=== PATIENT | female | born 1935 | race Caucasian/White ===

== ENCOUNTER 2016-10-16 06:00 | Day surgery (SDC) | payer MEDICARE, MEDICAID ==
[~2016-10-16] VITALS: Ht 162.6 cm; Wt 81.6 kg
[2016-10-16 06:58] LABS: BASOPHILS 0.7 % (0.0-2.0); EOSINOPHILS 2.8 % (0-7); HEMATOCRIT 34.6 % (36.0-48.0); HEMOGLOBIN 11.6 g/dL (12-16); IMMATURE GRANULOCYTES 0.2 % (0-5); LYMPHOCYTES 43.6 % (15-50); MCH 29.8 pg (26.0-34.0); MCHC 33.5 g/dL (31.0-37.0); MCV 88.9 fL (80.0-100.0); MEAN PLATELET VOLUME 9.9 fL (7.4-10.4); MONOCYTES 11.3 % (2-11); NEUTROPHILS 41.4 % (40-80); PLATELET COUNT 243 10x3/uL (130-400); RBC 3.89 10x6/uL (4.00-5.40); RDW 12.3 % (11.5-14.5); WBC 4.2 10x3/uL (4.8-10.8)
[2016-10-16 07:04] LABS: APTT 31.7 SECONDS (22.8-39.4); INR 0.98 (0.85-1.17); PROTIME 12.8 SECONDS (11.6-15.0)
[2016-10-16 07:06] LABS: ANION GAP 10.3 mmol/L (8-16); CALCIUM 8.6 mg/dL (8.5-10.1); CREATININE - SERUM 0.8 mg/dL (0.6-1.3); POTASSIUM - SERUM 4.3 mmol/L (3.5-5.1)
[2016-10-16] MEDS ORDERED: FUROSEMIDE20 MG PO (07:11)
[2016-10-16] MEDS ORDERED: KLOR-CON 1010 MEQ PO (07:12)
[2016-10-16] MEDS ORDERED: LOSARTAN POTASS25 MG PO (07:13)
[2016-10-16] MEDS ORDERED: COREG 3.1253.125 MG PO (07:14)
[2016-10-16] MEDS ORDERED: REQUIP1 MG PO (07:15)
[2016-10-16] MEDS ORDERED: WELLBUTRIN SR150 MG PO (07:15)
[2016-10-16] MEDS ORDERED: HYDROCODONE-APA1 TAB PO (07:16)
[2016-10-16] MEDS ORDERED: LEXAPRO10 MG PO (07:16)
[2016-10-16] MEDS ORDERED: KENALOG 0.1 % 115 GM TOPICAL (07:17)
[2016-10-16] MEDS ORDERED: LIPITOR10 MG PO (07:18)
[2016-10-16] MEDS ORDERED: NIZORAL 2 % CRE15 GM TOPICAL (07:19)
[2016-10-16 07:20] VITALS: BP 125/55; Ht 162.6 cm; Wt 81.6 kg
--- NOTE | 2016-10-16 09:45 | NUR ---
RIGHT FOOT SCRUBBED WITH ALCOHOL BEFORE PREPPED WITH CHLORAPREP
--- NOTE | 2016-10-16 12:35 | NUR ---
1145--IV DC'D, PT UP TO DRESS. MADDIE BARRAGAN 120--DISCHARGE INSTRUCTIONS GIVEN, PT VERBALIZES UNDERSTANDING. PT OFF UNIT VIA WC. MADDIE BARRAGAN
--- NOTE | 2016-10-30 08:50 | OP ---
PATIENT NAME: BRYAN MORRIS MEDICAL RECORD: [id number] :37 LOCATION:[facility] ADMISSION DATE: SURGEON: MARIYA RO DPM DATE OF OPERATION: 10/16/2016 PREOPERATIVE DIAGNOSIS: Arthritis, right first metatarsophalangeal joint, with spurring, dorsal aspect. POSTOPERATIVE DIAGNOSIS: Arthritis, right first metatarsophalangeal joint, with spurring, dorsal aspect. PROCEDURE: Cheilectomy, right first metatarsophalangeal joint. ANESTHESIA: Local with IV sedation utilizing lidocaine and Marcaine plain around the first ray in a ring block fashion approximately 20 cc total. HEMOSTASIS: Right ankle tourniquet at 250 mmHg. PREOPERATIVE DETAILS: The patient was taken to the OR and placed on the operating table in a supine position. This was followed by induction of general anesthesia and infiltration of local anesthetic. The right extremity was then prepped and draped in the usual aseptic technique, followed by elevation of extremity and inflation of tourniquet. A 15-blade was used to create a 4-cm linear incision over the dorsal aspect of the first MPJ. The incision was deepened down to the joint capsule. A linear capsulotomy was performed and the capsule was freed from the dorsal aspect of the first metatarsal head and the base of the proximal phalanx. A sagittal saw and rongeur were used to remove all enlarged bone dorsally. Following that, a rasp was used to smooth it. The wound was flushed. Excellent reduction of the prominence was noted and range of motion was also better. The deep tissue capsule was closed with 2-0 Vicryl, the subcutaneous tissue with 4-0 Rapide and the skin was closed with 4-0 Rapide in a subcuticular technique followed by Dermabond, Adaptic, 4 x 4 and Conform were used to dress the wound followed by Coban. Tourniquet was deflated. POSTOPERATIVE DETAILS: The patient tolerated the procedure well and left the OR with vital signs stable and vascular status at preop levels. The patient was transported to recovery per anesthesia in stable condition. TRANSINT:[id number] Voice Confirmation ID: [id number] DOCUMENT ID: [id number] MARIYA RO DPM at 0850 CC: [id number] DICTATION DATE: 10/16/16 0957 TONGUE LINING STITCHER: 10/16/16 1441 [facility] 10/16/16 [place] [id number] [place] [id number]
== END 2016-10-16 12:05 | disposition home or self-care (01) ==
LOC: D.OPS 06:00 → D.PAN 09:00 → D.OPS 12:05
PROVIDERS: Anesthesiology
DX: M13.871 Other specified arthritis, right ankle and foot (principal)

== ENCOUNTER → 2018-03-09 11:11 | Outpatient (CLI) | payer MEDICARE, MEDICAID ==
[~2018-03-09] VITALS: Ht 162.6 cm; Wt 72.7 kg
--- NOTE | ~2018-03-09 | HEMODYNAMI ---
PATIENT:BRYAN MORRIS MEDICAL RECORD: [id number] : 37 LOCATION:[facility] ADMISSION DATE: 03/09/18 Generatedon:03/09/201813:52 Patient name: BRYAN MORRIS Patient #: [id number] SSN: : [id number] Date of study: 03/09/2018 Page: Of Hemodynamic Procedure Report Patient Data Patient Demographics Procedure consent was obtained First Name: BRYAN Gender: Female Last Name: ALEXANDRA : 1935 [facility] Initial: MEMO Age: 83 year(s) Patient #: [id number] Race: Unknown Additional ID: [id number] Contact details [address]: [address] [place] [address] State: [place] City: [place] Zip code: [address] Past Medical History Allergies Allergen Reaction Date Comments Reported Other allergy 03/09/2018 AMPICILLIN, DERMEROL Admission Admission Data Admission Date: 03/09/2018 Admission Time: 11:11 Lab Results Lab Result Date: 03/09/2018 Lab Result Time: 0:00 Biochemistry Name Units Result Min Max BUN mg/dl 9 --(*---)-- 7 18 Creatinine mg/dl 0.8 --(-*--)-- 0.6 1.3 CBC Name Units Result Min Max Hemoglobin g/dl 11.4 *-(----)-- 13.5 17.5 Procedure Procedure Types Cath Procedure Diagnostic Procedure [facility] w/Coronaries Sedation Charges Moderate Sedation up to 30 minutes PCI Procedure Coronary Stent Coronary Stent Initial Procedure Description Procedure Date Procedure Date: 03/09/2018 Procedure Start Time: 13:18 Procedure End Time: 13:46 Procedure Staff Name Function Armen Salvador MD Performing Physician Natasha Santillan RT Monitor Rudy Donato RT Scrub Baron Frankel RN Nurse Dany Hammer RN Partner Management Consultant Procedure Data Cath Procedure Fluoroscopy Diagnostic fluoroscopy Total fluoroscopy Time: 3.6 time: 3.6 min min Diagnostic fluoroscopy Total fluoroscopy dose: 726 dose: 726 mGy mGy Contrast Material Contrast Material Type Amount (ml) Isovue 300 103 Entry Location Entry Primary Successful Side Size Upsize Upsize Entry Closure Succes sful Closure Location (Fr) 1 (Fr) 2 (Fr) Remarks Device Remarks Femoral Right 5 Fr 6 Fr Exoseal artery Short Estimated blood loss: 10 ml Diagnostic catheters Device Type Used For End Catheter Placement MULTIPACK JL 4.0 5Fr Procedure catheter MULTIPACK 3DRC 5Fr Procedure catheter MULTIPACK Pigtail 5 Fr Procedure catheter Procedure Complications No complications Procedure Medications Medication Administration Route Dosage Oxygen 2 l/min Lidocaine 2% added to field 20 Heparin Flush Bag added to field 2 bags (1000units/500ml NS) Radial Cocktail added to field 1 syringe (Verapomil 2mg/Nitro 400mcg/Heparin 1500units) 0.9% NaCl I.V. 100 ml/hr Versed I.V. 1 mg Fentanyl I.V. 50 mcg Versed I.V. 1 mg Fentanyl I.V. 50 mcg Heparin Bolus I.V. 7500 units Fentanyl I.V. 50 mcg Plavix P.O. 600 mg Hemodynamics Rest HGB: 11.4 (g/dl) Heart Rate: 61 (bpm) Pressure Samples Time Site Value (mmHg) Purpose Heart Use Rate(bpm) 13:29 LV 159/-7,12 Snapshot 81 Gradients Valve Time Site Site Mean SEP/DFP Peak To Heart Use 1 2 (mmHg) (sec/min) Peak Rate (mmHg) (bpm) Aortic 13:30 LV AO 67 Snapshots Pre Cath Intra NCS Post Cath Vital Signs Time Heart Resp SPO2 etCO2 NIBP (mmHg) Rhythm Pain Sedation Rate (ipm) (%) (mmHg) Status Level (bpm) 13:07:31 66 15 98 31.3 133/68(107) NSR 0 (11) 10(A) , No pain 13:14:27 62 13 96 29.8 129/67(114) NSR 0 (11) 10(A) , No pain 13:18:45 65 15 95 20.1 122/67(111) NSR 0 (11) 10(A) , No pain 13:23:01 77 14 96 29.1 129/63(109) NSR 0 (11) 9(A) , No pain 13:27:17 79 13 97 12.7 135/75(109) NSR 0 (11) 9(A) , No pain 13:31:35 72 16 99 32.1 134/71(109) NSR 0 (11) 10(A) , No pain 13:35:51 64 13 99 15.6 148/75(106) NSR 0 (11) 10(A) , No pain 13:40:13 74 16 100 15.6 144/70(114) NSR 0 (11) 10(A) , No pain 13:44:29 70 15 100 30.6 157/82(125) NSR 0 (11) 10(A) , No pain Medications Time Medication Route Dose Verified Delivered Reason Not es Effectiveness by by 13:10:45 Oxygen 2 l/min used for procedure 13:11:02 Lidocaine 2% added 20ml Armen Armen for local to vial [place] Salvador MD anesthetic field 13:11:16 Heparin Flush added 2 bags Armen Armen used for Bag to [place] Salvador MD procedure (1000units/500ml field NS) 13:11:38 Radial Cocktail added 1 Armen Armen for not used, (Verapomil to syringe [place] Salvador MD vasodilation femoral 2mg/Nitro field access 400mcg/Heparin completed. 1500units) 13:12:04 0.9% NaCl I.V. 100ml/hr Armen Armen Per physician [place] Salvador MD 13:14:33 Versed I.V. 1 mg Armen Buffie for sedation [place] Frankel RN 13:14:42 Fentanyl I.V. 50 mcg Armen Buffie for sedation [place] Frankel RN 13:23:04 Versed I.V. 1 mg Armen Buffie for sedation [place] Frankel RN 13:23:07 Fentanyl I.V. 50 mcg Armen Buffie for sedation [place] Frankel RN 13:34:23 Heparin Bolus I.V. 7500 Armen Buffie for milena cked units [place] Frankel RN anticoagulation with Cfarmer rn 13:38:13 Fentanyl I.V. 50 mcg Armen Buffie for sedation [place] Frankel RN 13:43:31 Plavix P.O. 600 mg Armen Buffie for [place] Frankel RN antiplatelet therapy Procedure Log Time Note 12:40:01 Dany Hammer RN sent for patient. Start room use. 12:40:02 Time tracking: Regular hours (M-F 7:00 - 5:00) 12:40:04 Plan of Care:Hemodynamics will remain stable., Cardiac rhythm will remain stable., Comfort level will be maintained., Respiratory function will remain adequate., Patient/ family verbilizes understanding of procedure., Procedure tolerated without complication., Recovers from procedure without complications.. 12:40:08 Signed procedure consent form obtained from patient. 12:40:13 H&P Date Dictated: 02/27/2018 Within 30 days and on chart., H&P Addendum completed by physician on day of procedure. (MUST COMPLETE FOR ALL OUTPATIENTS). 12:43:02 Patient allergic to Other allergyAMPICILLIN, DERMEROL 12:43: Lab Result : BUN 9 mg/dl 12:43: Lab Result : Hemoglobin 11.4 g/dl 12:43:27 Lab Result : Creatinine 0.8 mg/dl 12:56:22 Patient received from Pre/Post Procedure Room to [facility] Alert and oriented. Tansferred to table in Supine position. 12:56:23 Warm blankets applied, and patrice hugger turned on for patient comfort. 12:56:23 Correct patient and procedure confirmed by team. 12:56:24 ECG and BP/O2 sat monitors applied to patient. 13:01:33 Vital chart was started 13:04:55 Baseline sample Acquired. 13:04:58 Rhythm: sinus rhythm 13:04:59 Full Disclosure recording started 13:05:00 Pre-procedure instructions explained to patient. 13:05:00 Pre-op teaching completed and patient verbalized understanding. 13:05:10 Patient NPO since Midnight. 13:05:21 Is patient on blood thinner?No 13:05:22 Patient diabetic? No. 13:05:26 Previous problem with sedation/anesthesia? No ? 13:05:27 Snore? Yes 13:05:28 Sleep apnea? No 13:05:29 Deviated septum? No 13:05:29 Opens mouth fully? Yes 13:05:30 Sticks out tongue? Yes 13:05:33 Airway obstruction? No ? 13:05:39 Dentures? Yes IN TIGHT 13:05:43 Modified Rubio's test Ulnar < 7 seconds 13:05:44 Patient pain scale 0/10 ?. 13:06:03 IV patent on arrival in left hand with 0.9% NaCl at KVO. 13:06:05 Lab results completed and on chart. 13:06:11 Right Radial & Right Groin area was prepped with chlora-prep and draped in sterile fashion 13:06:16 Alarms reviewed by R. N. 13:06:17 Sharps counted by scrub and verified by R.N. 13:06:20 Use device set Radial Dx or PCI 13:06:21 ACIST Syringe (22175) opened to sterile field. 13:06:23 Bag Decanter (2002S) opened to sterile field. 13:06:24 ACIST Hand Control (25978) opened to sterile field. 13:06:24 ACIST Manifold (07742) opened to sterile field. 13:06:25 Tegaderm 4 x 4 (1626W) opened to sterile field. 13:06:26 Medline Cath Pack ([id number]) opened to sterile field. 13:06:27 DIAGNOSTIC WIRE .035 260cm J wire (277135) opened to sterile field. 13:06:27 MBrace Wrist Support ([id number]) opened to sterile field. 13:06:28 SHEATH 6Fr Prelude Radial ([id number]) opened to sterile field. 13:10:45 Oxygen 2 l/min was administered by ; used for procedure; 13:11:02 Lidocaine 2% 20ml vial added to field was administered by Armen Salvador MD; for local anesthetic; 13:11:16 Heparin Flush Bag (1000units/500ml NS) 2 bags added to field was administered by Armen Salvador MD; used for procedure; 13:11:38 Radial Cocktail (Verapomil 2mg/Nitro 400mcg/Heparin 1500units) 1 syringe added to field was administered by Armen Salvador MD; for vasodilation; not used, femoral access completed. 13:12:04 0.9% NaCl 100ml/hr I.V. was administered by Armen Salvador MD; Per physician; 13:12:33 --------ALL STOP TIME OUT------ 13:12:33 Final Timeout: patient, procedure, and site verified with staff and physician. All members of the team are in agreement. 13:12:35 Right Radial & Right Groin site verified by team. 13:12:38 Physical assessment completed. ASA score P 2 - A patient with mild systemic disease as per Armen Salvador MD. 13:12:41 Sedation plan: IV Moderate Sedation Medication:Versed, Fentanyl 13:14:33 Versed 1 mg I.V. was administered by Baron Frankel RN; for sedation; 13:14:42 Fentanyl 50 mcg I.V. was administered by Baron Frankel RN; for sedation; 13:17:56 Zero performed for pressure channel P1 13:18:10 Procedure started. 13:18:31 Local anesthetic to right radial artery with Lidocaine 2% by Armen Salvador MD.INITIAL ACCESS ONLY 13:21:25 UNABLE TO CANNULATE RADIAL 13:22:05 SHEATH 5FR Trevor (SNR066) opened to sterile field. 13:22:18 Use device set Multipack Set 13:22:21 DIAGNOSTIC Multipack 5Fr catheter set (LP3082) opened to sterile field. 13:22:51 Local anesthetic to right femoral artery with Lidocaine 2% by Armen Salvador MD.ADDITIONAL ACCESS 13:23:04 Versed 1 mg I.V. was administered by Baron Frankel RN; for sedation; 13:23:07 Fentanyl 50 mcg I.V. was administered by Baron Frankel RN; for sedation; 13:24:07 A 5 Fr sheath was inserted into the Right Femoral artery 13:25:03 A MULTIPACK JL 4.0 5Fr catheter was advanced over the wire and used for Procedure. 13:25:57 LCA angiography performed. 13:26:37 Catheter exchanged over wire. 13:27:14 A MULTIPACK 3DRC 5Fr catheter was advanced over the wire and used for Procedure. 13:28:21 RCA angiography performed. 13:28:22 Catheter exchanged over wire. 13:29:15 A MULTIPACK Pigtail 5 Fr catheter was advanced over the wire and used for Procedure. 13:29:27 LV gram done using VALDES 13:29:30 Injector settings: Ml/sec: 10, Volume: 210, 13:29:57 LV hemodynamics recorded. 13:30:10 EF : 55 % 13:30:25 Catheter exchanged over wire. 13:31:16 SHEATH 6FR Trevor (SMU314) opened to sterile field. 13:31:23 TUBING High Pressure Extension Tubing ([place]) ([id number]) opened to sterile field. 13:31:27 BMW 300cm Straight [place] 2 wire (1179537) opened to sterile field. 13:31:35 INFLATOR Merit BasixCompak (XO2125) opened to sterile field. 13:32:14 Sheath upsized to a 6 Fr Short. 13:32:28 GUIDE 6FR 3DRC catheter (SV63YVW) opened to sterile field. 13:32:45 6 Fr 3DRC guide catheter was inserted over the wire 13:34:23 Heparin Bolus 7500 units I.V. was administered by Baron Frankel RN; for anticoagulation; checked with Cfarmer rn 13:34:30 BMW 300 wire advanced. 13:36:06 Wire advanced across lesion. 13:38:13 Fentanyl 50 mcg I.V. was administered by Baron Frankel RN; for sedation; 13:38:32 Place stent Inflation Number: 1 A INTEGRITY OTW 3.0 X 18 stent ([id number]) was prepped and advanced across the Prox RCA. The stent was deployed at 14 WALT for 0:10 (min:sec). 13:38:59 Stent catheter was removed intact over wire. 13:38:59 Wire removed. 13:39:00 Guide catheter removed. 13:39:21 EXOSEAL 6Fr (EX600) opened to sterile field. 13:41:10 Sheath removed intact; hemostasis achieved with Exoseal to the Right Femoral artery. 13:41:12 Procedure ended.(Physican Out) 13:41:25 Fluoroscopy time 03.60 minutes. 13:41:29 Fluoroscopy dose: 726 mGy 13:41:29 Flurop Dose total: 726 13:41:32 Contrast amount:Isovue 300 103ml. 13:41:36 Post-op/insertion site Right Femoral artery dressed using a 4 x 4 and Tegaderm. 13:41:40 Post right femoral artery:stable, soft, clean and dry 13:41:44 Post-procedure physical assessment completed. ASA score P 2 - A patient with mild systemic disease as per Armen Salvador MD. 13:41:46 Post procedure rhythm: unchanged. 13:41:50 Estimated blood loss: 10 ml 13:43:23 Post procedure instruction explained to patient.Patient verbalizes understanding. 13:43:23 Patient needs reinforcement of post procedure teaching. 13:43:31 Plavix 600 mg P.O. was administered by Baron Frankel RN; for antiplatelet therapy; 13:43:33 Procedure type changed to Cath procedure, Diagnostic procedure, LHC, LHC w/Coronaries, Sedation Charges, Moderate Sedation up to 30 minutes, PCI procedure, Coronary Stent, Coronary Stent Initial 13:44:03 Procedure and supply charges have been captured, reviewed, submitted and are correct. 13:44:06 Procedure Complication : No complications 13:46:47 Vital chart was stopped 13:46:48 See physician's report for complete and final results. 13:46:49 Report given to Pre/Post Procedure Room. 13:46:53 Patient transfered to Pre/Post Procedure Room with Bed. 13:46:54 Procedure ended. 13:46:54 Full Disclosure recording stopped 13:46:59 End room use (Document Last) 13:51:13 FEMSTOP Gold ([id number]) opened to sterile field. 13:51:20 Femstop placed over the right femoral artery at 180 mmHg. Hemostasis achieved. Intervention Summary Intervention Notes Time ActionType Lesion and Equipment Action# Pressure Duration Attributes Used 13:38:32 Place stent Prox RCA INTEGRITY 1 14 00:10 OTW 3.0 X 18 stent ([id number]) Device Usage Item Name Manufacture Quantity Catalog Number Hospital Part Current M inimal Lot# / Charge Number Stock Stock Serial# Code ACIST Syringe Acist 1 21799 898523 606036 017397 2 0 (40275) [employer] Bag Decanter Microtek 1 2001S 302199 76777 273409 5 (2001S) Medical Inc. ACIST Hand Acist 1 16338 370525 383332 696760 5 Control (20529) [employer] Inc ACIST Manifold Acist 1 28641 877635 006691 672451 5 (16954) Medical Systems Inc Tegaderm 4 x 4 3M 1 1626W 979926 050952 749645 5 (1626W) Medline Cath Cardinal 1 [id number] 828767 00554 688442 5 [facility] ([id number]) DIAGNOSTIC WIRE St Winston 1 823235 471415 302584 022420 3 0 .035 260cm J wire (482580) MBrace Wrist Advanced 1 140-0250-00 582439 83903 407288 5 Support Vascular ([id number]) Dynamics SHEATH 6Fr Merit 1 [id number] 062044 037567 470882 5 Prelude Radial Medical ([id number]) SHEATH 5FR Terumo 1 XLJ080 451918 405744 683553 4 0 Trevor (OXW949) DIAGNOSTIC Cardinal 1 IQ6030 798956 85753 597837 3 0 Multipack 5Fr Health catheter set (OQ8667) MULTIPACK JL Cardinal 1 448262 5 4.0 5Fr Health catheter MULTIPACK 3DRC Cardinal 1 342617 5 5Fr catheter Health MULTIPACK Cardinal 1 597837 5 Pigtail 5 Fr Health catheter SHEATH 6FR Terumo 1 HFM609 071501 012887 509133 4 0 Trevor (FVT056) TUBING High Merit 1 [id number] 325889 45559 868657 1 0 Pressure Medical Extension Tubing ([place]) ([id number]) BMW 300cm Flores 1 [id number] 544076 547807 768157 5 Straight Vascular [place] 2 wire (9740433) INFLATOR Merit Merit 1 IL9165 905479 002182 524141 1 5 BasixCompaAstro [employer] Medical (WX0511) GUIDE 6FR 3DRC Medtronic 1 [id number] 307887 121213 009886 1 catheter (HV38QDS) INTEGRITY OTW Medtronic 1 [id number] 254887 639092 3 [id number] 3.0 X 18 stent ([id number]) EXOSEAL 6Fr Cardinal 1 EX600 413484 979789 644507 1 0 (EX600) Health FEMSTOP Gold St Winston 1 Y09013 401210 452827 988102 5 ([id number]) Signature Audit [place] Stage Time Signature Unsigned Intra-Procedure 03/09/2018 Natasha Santillan 1:52:26 PM RT(R) Signatures Monitor : Natasha Santillan Signature : RT Date : Time : [facility] [address] [place] [id number]
[~2018-03-09 11:11] MED LIST: BAYER CHEWABLE81 MG PO; COREG 3.1253.125 MG PO; FUROSEMIDE20 MG PO; HYDROCODONE-APA1 TAB PO; KENALOG 0.1 % 115 GM TOPICAL; KLOR-CON 1010 MEQ PO; LEXAPRO10 MG PO; LIPITOR10 MG PO; LOSARTAN POTASS25 MG PO; NIZORAL 2 % CRE15 GM TOPICAL; PLAVIX75 MG PO; REQUIP1 MG PO; WELLBUTRIN SR150 MG PO
[2018-03-09 11:57] VITALS: BP 147/62; Ht 162.6 cm; Wt 72.7 kg
[2018-03-09 12:27] LABS: BASOPHILS 0.7 % (0-2); EOSINOPHILS 1.5 % (0-7); HEMATOCRIT 32.8 % (36.0-48.0); HEMOGLOBIN 11.4 g/dL (12-16); LYMPHOCYTES 26.3 % (15-50); MCH 30.6 pg (26.0-34.0); MCHC 34.8 g/dL (31.0-37.0); MCV 87.9 fL (80.0-100.0); MEAN PLATELET VOLUME 9.8 fL (7.4-10.4); MONOCYTES 9.4 % (2-11); NEUTROPHILS 62.1 % (40-80); PLATELET COUNT 234 10x3/uL (130-400); RBC 3.73 10x6/uL (4.00-5.40); RDW 11.4 % (11.5-14.5); WBC 4.6 10x3/uL (4.8-10.8)
[2018-03-09 12:35] LABS: ANION GAP 11.5 mmol/L (8-16); CREATININE - SERUM 0.8 mg/dL (0.6-1.3); POTASSIUM - SERUM 4.5 mmol/L (3.5-5.1)
== END | disposition home or self-care (01) ==
LOC: D.CATH 11:11
PROVIDERS: Internal Medicine Cardiovascular Disease
DX: I25.10 Atherosclerotic heart disease of native coronary artery without angina pectoris (principal); I50.9 Heart failure, unspecified

== ENCOUNTER → 2018-04-21 14:08 | Outpatient (CLI) | payer MEDICARE, MEDICAID ==
[2018-03-09 11:57] VITALS: BMI 27.5
== END | disposition home or self-care (01) ==
LOC: D.CT 14:08
DX: R10.9 Unspecified abdominal pain (principal)

== ENCOUNTER 2018-09-10 07:25 | Outpatient (CLI) | payer MEDICARE, MEDICAID ==
[~2018-09-10] VITALS: Ht 162.6 cm; Wt 81.8 kg
--- NOTE | ~2018-09-10 | HEMODYNAMI ---
PATIENT:BRYAN MORRIS MEDICAL RECORD: [id number] : 39 LOCATION:[facility] ADMISSION DATE: 09/10/18 Generatedon:09/10/201810:08 Patient name: BRYAN MORRIS Patient #: [id number] SSN: : 1935 Date of study: 09/10/2018 Page: Of Hemodynamic Procedure Report Patient Data Patient Demographics Procedure consent was obtained First Name: BRYAN Gender: Female Last Name: ALEXANDRA : 1935 [facility] Initial: MEMO Age: 83 year(s) Patient #: [id number] Race: Additional ID: [id number] Contact details [address]: [address] [place] [address] State: [place] City: [place] Zip code: [address] Past Medical History Allergies Allergen Reaction Date Comments Reported Other allergy 03/09/2018 AMPICILLIN, DERMEROL Other allergy 09/10/2018 Ampicillin, meperidine, ASA Admission Admission Data Admission Date: 09/10/2018 Admission Time: 7:25 Lab Results Lab Result Date: 09/10/2018 Lab Result Time: 0:00 Biochemistry Name Units Result Min Max BUN mg/dl 7 --(*---)-- 7 18 Creatinine mg/dl 0.9 --(-*--)-- 0.6 1.3 CBC Name Units Result Min Max Hemoglobin g/dl 11.8 *-(----)-- 13.5 17.5 Procedure Procedure Types Cath Procedure Diagnostic Procedure LHC LHC w/Coronaries Sedation Charges Moderate Sedation up to 30 minutes PCI Procedure Coronary Stent Coronary Stent Initial Procedure Description Procedure Date Procedure Date: 09/10/2018 Procedure Start Time: 9:35 Procedure End Time: 10:01 Procedure Staff Name Function Evette Silva RT Scrub Baron Frankel RN Nurse Armen Back MD Performing Physician Racquel Seals RT Monitor Procedure Data Cath Procedure Fluoroscopy Diagnostic fluoroscopy Total fluoroscopy Time: 5.8 time: 5.8 min min Diagnostic fluoroscopy Total fluoroscopy dose: 638 dose: 638 mGy mGy Contrast Material Contrast Material Type Amount (ml) Isovue 300 103 Entry Location Entry Primary Successful Side Size Upsize Upsize Entry Closure Succes sful Closure Location (Fr) 1 (Fr) 2 (Fr) Remarks Device Remarks Femoral Right 5 Fr 6 Fr artery Short Estimated blood loss: 10 ml Diagnostic catheters Device Type Used For End Catheter Placement MULTIPACK JL 4.0 5Fr Procedure catheter MULTIPACK 3DRC 5Fr Procedure catheter MULTIPACK Pigtail 5 Fr Procedure catheter Procedure Complications No complications Procedure Medications Medication Administration Route Dosage Oxygen etCO2 Nasal cannula 2 l/min Lidocaine 2% added to field 20 Heparin Flush Bag added to field 2 bags (1000units/500ml NS) 0.9% NaCl I.V. 100 ml/hr Versed I.V. 2 mg Fentanyl I.V. 50 mcg Versed I.V. 1 mg Fentanyl I.V. 50 mcg Versed I.V. 1 mg Fentanyl I.V. 50 mcg Heparin Bolus I.V. 8000 units Plavix P.O. 600 mg Hemodynamics Rest HGB: 11.8 (g/dl) Heart Rate: 65 (bpm) Pressure Samples Time Site Value (mmHg) Purpose Heart Use Rate(bpm) 9:45 LV 115/5,17 Snapshot 85 9:45 LV 109/5,15 Pullback 73 9:45 AO 111/46(70) Pullback 73 Gradients Valve Time Site 1 Site 2 Mean SEP/DFP Peak To Heart Use (mmHg) (sec/min) Peak Rate (mmHg) (bpm) Aortic 9:45 LV AO 0 14 0 73 109/5,15 111/46(70) Calculations Valve P-P Mean Valve Index Valve Source Name Gradient Area Flow (cm2) Aortic 0 0 0 0 Snapshots Pre Cath Intra NCS Post Cath Vital Signs Time Heart Resp SPO2 etCO2 NIBP (mmHg) Rhythm Pain Sedation Rate (ipm) (%) (mmHg) Status Level (bpm) 9:13:03 66 13 96 0 134/64(106) NSR 0 (11) 10(A) , No pain 9:17:19 66 15 95 38.4 119/64(92) NSR 0 (11) 10(A) , No pain 9:21:31 65 23 94 27.1 119/56(85) NSR 0 (11) 10(A) , No pain 9:25:45 68 15 95 23.3 122/54(95) NSR 0 (11) 10(A) , No pain 9:29:57 65 14 95 37.6 111/64(101) NSR 0 (11) 10(A) , No pain 9:34:09 68 16 97 41.4 118/51(77) NSR 0 (11) 9(A) , No pain 9:38:17 64 15 97 0 111/54(94) NSR 0 (11) 9(A) , No pain 9:42:29 68 14 97 0 107/52(76) NSR 0 (11) 9(A) , No pain 9:46:37 73 16 97 0 115/58(81) NSR 0 (11) 9(A) , No pain 9:50:51 70 19 97 0 105/48(80) NSR 0 (11) 9(A) , No pain 9:54:59 72 15 97 0 123/56(95) NSR 0 (11) 9(A) , No pain 9:59:10 76 14 98 0 129/65(97) NSR 0 (11) 10(A) , No pain Medications Time Medication Route Dose Verified Delivered Reason Notes Effectiveness by by 9:11:27 Oxygen etCO2 2 Armen Buffie used for Nasal l/min [place] Frankel RN procedure cannula 9:11:33 Lidocaine 2% added 20ml Armen Armen used for to vial [place] Back MD procedure field 9:11:44 Heparin Flush added 2 Armen Armen used for Bag to bags [place] Back MD procedure (1000units/500ml field NS) 9:11:51 0.9% NaCl I.V. 100 Armen Buffie Per physician ml/hr [place] Frankel RN 9:31:35 Versed I.V. 2 mg Armen Buffie for sedation [place] Frankel RN 9:31:44 Fentanyl I.V. 50 Armen Buffie for sedation mcg [place] Frankel RN 9:35:43 Versed I.V. 1 mg Armen Buffie for sedation [place] Frankel RN 9:35:47 Fentanyl I.V. 50 Armen Buffie for sedation mcg [place] Frankel RN 9:40:31 Versed I.V. 1 mg Armen Buffie for sedation [place] Frankel RN 9:40:35 Fentanyl I.V. 50 Armen Draper for sedation mcg [place] Frankel RN 9:49:10 Heparin Bolus I.V. 8000 Armen Draper for verif ied units [place] Frankel RN anticoagulation with dr back 10:01:03 Plavix P.O. 600 Armen rodriguez mg [place] Frankel RN antiplatelet therapy Procedure Log Time Note 8:50:41 Baron Frankel RN sent for patient. Start room use. 9:03:13 Informed consent obtained and on chart 9:03:58 Time tracking: Regular hours (M-F 7:00 - 5:00) 9:04:03 Plan of Care:Hemodynamics will remain stable., Cardiac rhythm will remain stable., Comfort level will be maintained., Respiratory function will remain adequate., Patient/ family verbilizes understanding of procedure., Procedure tolerated without complication., Recovers from procedure without complications.. 9:04:13 Patient received from Pre/Post Procedure Room to [facility] 2 Alert and oriented. Tansferred to table in Supine position. 9:04:14 Warm blankets applied, and patrice hugger turned on for patient comfort. 9:04:15 ECG and BP/O2 sat monitors applied to patient. 9:04:15 Correct patient and procedure confirmed by team. 9:11:27 Oxygen 2 l/min etCO2 Nasal cannula was administered by Baron Frankel RN; used for procedure; 9:11:33 Lidocaine 2% 20ml vial added to field was administered by Armen Back MD; used for procedure; 9:11:44 Heparin Flush Bag (1000units/500ml NS) 2 bags added to field was administered by Armen Back MD; used for procedure; 9:11:51 0.9% NaCl 100 ml/hr I.V. was administered by Baron Frankel RN; Per physician; 9:11:55 Vital chart was started 9:12:31 Baseline sample Acquired. 9:12:37 Baseline sample Acquired. 9:12:45 Rhythm: sinus rhythm 9:12:46 Full Disclosure recording started 9:14:08 H&P Date Dictated: 09/03/2018 Within 30 days and on chart., H&P Addendum completed by physician on day of procedure. (MUST COMPLETE FOR ALL OUTPATIENTS). 9:14:10 Pre-procedure instructions explained to patient. 9:14:12 Family in waiting room. 9:14:14 Patient NPO since Midnight. 9:14:40 Patient allergic to Other allergyAmpicillin, meperidine, ASA 9:14:42 Is the patient allergic to Iodine/contrast media? No. 9:14:45 Was the patient premedicated? Yes 9:14:47 Is patient on blood thinner?No 9:14:58 Patient diabetic? No. 9:15:04 Snore? No 9:15:06 Sleep apnea? No 9:15:13 Dentures? Yes in tight 9:15:17 Patient pain scale 0/10 ?. 9:15:23 IV patent on arrival in left forearm with 0.9% NaCl at [facility]. 9:17:13 Lab results completed and on chart. 9:18:59 Lab Result : Hemoglobin 11.8 g/dl 9:18:59 Lab Result : Creatinine 0.9 mg/dl 9:18:59 Lab Result : BUN 7 mg/dl 9:22:33 Right groin area was prepped with chlora-prep and draped in sterile fashion 9:22:34 Sharps counted by scrub and verified by R.N. 9:22:34 Alarms reviewed by R. N. 9:22:42 Physician paged 9:27:29 Zero performed for pressure channel P1 9:31:23 Physician arrived 9:31:24 Final Timeout: patient, procedure, and site verified with staff and physician. All members of the team are in agreement. 9:31:24 --------ALL STOP TIME OUT------ 9:31:29 Right groin site verified by team. 9:31:34 Physical assessment completed. ASA score P 2 - A patient with mild systemic disease as per Armen Back MD. 9:31:35 Versed 2 mg I.V. was administered by Baron Frankel RN; for sedation; 9:31:38 Sedation plan: IV Moderate Sedation Medication:Versed, Fentanyl 9:31:44 Fentanyl 50 mcg I.V. was administered by Baron Frankel RN; for sedation; 9:31:49 Use device set Femoral Dx 9:31:50 ACIST Syringe (95727) opened to sterile field. 9:31:51 Medline Cath Pack ([id number]) opened to sterile field. 9:31:51 Bag Decanter (2002S) opened to sterile field. 9:31:52 DIAGNOSTIC WIRE .035 260cm J wire (570532) opened to sterile field. 9:31:54 ACIST Manifold (44024) opened to sterile field. 9:31:54 ACIST Hand Control (84133) opened to sterile field. 9:31:55 DIAGNOSTIC Multipack 5Fr catheter set (UT1682) opened to sterile field. 9:31:56 Tegaderm 4 x 4 (1626W) opened to sterile field. 9:31:58 SHEATH 5FR [place] (DNQ398) opened to sterile field. 9:35:22 Procedure started. 9:35:38 Local anesthetic to right femoral artery with Lidocaine 2% by Armen Back MD.INITIAL ACCESS ONLY 9:35:43 Versed 1 mg I.V. was administered by Baron Frankel RN; for sedation; 9:35:47 A 5 Fr sheath was inserted into the Right Femoral artery 9:35:47 Fentanyl 50 mcg I.V. was administered by Baron Frankel RN; for sedation; 9:40:31 Versed 1 mg I.V. was administered by Baron Frankel RN; for sedation; 9:40:35 Fentanyl 50 mcg I.V. was administered by Baron Frankel RN; for sedation; 9:41:09 A MULTIPACK JL 4.0 5Fr catheter was advanced over the wire and used for Procedure. 9:42:38 LCA angiography performed. 9:42:40 Catheter removed. 9:42:47 A MULTIPACK 3DRC 5Fr catheter was advanced over the wire and used for Procedure. 9:43:33 RCA angiography performed. 9:43:40 Catheter removed. 9:45:08 A MULTIPACK Pigtail 5 Fr catheter was advanced over the wire and used for Procedure. 9:45:29 EF : 60 % 9:45:45 Catheter removed. 9:48:26 Sheath upsized to a 6 Fr Short. 9:48:30 GUIDE 6FR 3DRC catheter ([id number]) opened to sterile field. 9:48:30 SHEATH 6FR [place] (RYT004) opened to sterile field. 9:48:32 TUBING High Pressure Extension Tubing ([place]) (NT8689V) opened to sterile field. 9:48:33 INFLATOR Merit BasixCompak (VH3980) opened to sterile field. 9:48:39 BMW 300cm [place] 2 J wire ([id number]) opened to sterile field. 9:48:51 6 Fr 3drc guide catheter was inserted over the wire 9:48:55 bmw wire advanced. 9:49:10 Heparin Bolus 8000 units I.V. was administered by Baron Frankel RN; for anticoagulation; verified with dr back 9:49:36 Wire advanced across lesion. 9:51:38 Inflate balloon Inflation number: 1 A EMERGE OTW 2.5 x 12 balloon ([id number]) was prepped and advanced across the Mid RCA, then inflated to 8 WALT for 0:17 (min:sec). 9:52:02 Inflation number: 2 The EMERGE OTW 2.5 x 12 balloon ([id number]) was reinflated across the Mid RCA, to 6 WALT for 0:13 (min:sec). 9:52:26 Inflation number: 3 The EMERGE OTW 2.5 x 12 balloon ([id number]) was reinflated across the Mid RCA, to 8 WALT for 0:07 (min:sec). 9:52:48 Balloon removed over the wire. 9:57:20 Place stent Inflation Number: 4 A NORM RX 3.0 x 26 stent ([id number]) was prepped and advanced across the Mid RCA. The stent was deployed at 12 WALT for 0:14 (min:sec). 9:58:03 EXOSEAL 6Fr (EX600) opened to sterile field. 9:58:37 Wire removed. 9:58:38 Guide catheter removed. 9:59:42 Procedure ended.(Physican Out) 9:59:55 Fluoroscopy time 05.80 minutes. 10:00:00 Fluoroscopy dose: 638 mGy 10:00:00 Flurop Dose total: 638 10:00:05 Contrast amount:Isovue 300 103ml. 10:00:29 Sharps counted by scrub and verified by R.N. 10:00:32 Insertion/operative site no bleeding no hematoma. 10:00:35 Post-op/insertion site Right Femoral artery dressed using a 4 x 4 and Tegaderm. 10:00:37 Post Procedure Pulses reassessed and unchanged 10:00:41 Post procedure rhythm: sinus rhythm 10:00:45 Estimated blood loss: 10 ml 10:00:46 Post procedure instruction explained to patient.Patient verbalizes understanding. 10:01:00 Procedure type changed to Cath procedure, Diagnostic procedure, LHC, LHC w/Coronaries, Sedation Charges, Moderate Sedation up to 30 minutes, PCI procedure, Coronary Stent, Coronary Stent Initial 10:01:03 Procedure and supply charges have been captured, reviewed, submitted and are correct. 10:01:03 Plavix 600 mg P.O. was administered by Baron Frankel RN; for antiplatelet therapy; 10:01:39 Procedure Complication : No complications 10:01:42 Vital chart was stopped 10:01:44 Report given to Pre/Post Procedure Room. 10:01:48 Patient transfered to Pre/Post Procedure Room with Stretcher. 10:01:50 Full Disclosure recording stopped 10:01:50 Procedure ended. 10:01:54 End room use (Document Last) Intervention Summary Intervention Notes Time ActionType Lesion and Equipment Used Action# Pressure Duration Attributes 9:51:38 Inflate Mid RCA EMERGE OTW 2.5 1 8 00:17 balloon x 12 balloon ([id number]) 9:52:02 Reinflate Mid RCA EMERGE OTW 2.5 2 6 00:13 balloon x 12 balloon ([id number]) 9:52:26 Reinflate Mid RCA EMERGE OTW 2.5 3 8 00:07 balloon x 12 balloon ([id number]) 9:57:20 Place stent Mid RCA NORM RX 3.0 x 4 12 00:14 26 stent ([id number]) Device Usage Item Name Manufacture Quantity Catalog Number Hospital Part Current Minimal Lot# / Charge Number Stock Stock Serial# Code ACIST Syringe Acist 1 44864 095212 486494 940204 20 (73917) Medical Systems Inc Bag Decanter Microtek 1 2001S 757926 83668 106219 5 () Medical Inc. Medline Cath Medline 1 [id number] 940552 23307 189981 5 Pack ([id number]) DIAGNOSTIC [facility] [place] 1 345182 137940 319623 021778 30 WIRE .035 260cm J wire (560778) ACIST Hand Acist 1 17824 907245 211979 482110 5 Control Medical (04609) Systems Inc ACIST Manifold Acist 1 37357 680615 542251 129562 5 (21662) Medical Systems Inc DIAGNOSTIC Cardinal 1 AU2829 831685 87160 595624 30 Multipack 5Fr Health catheter set (ZM0689) Tegaderm 4 x 4 3M 1 1626W 582198 997921 565246 5 (1626W) SHEATH 5FR Terumo 1 MHA671 088073 621513 056640 5 [place] (FWB162) MULTIPACK JL Cardinal 1 241254 5 4.0 5Fr Health catheter MULTIPACK 3DRC Cardinal 1 966608 5 5Fr catheter Health MULTIPACK Cardinal 1 195558 5 Pigtail 5 Fr Health catheter SHEATH 6FR Terumo 1 TRF945 984913 715286 987287 40 [place] (FYK424) GUIDE 6FR 3DRC Medtronic 1 [id number] 572236 141868 406272 1 catheter (IR02IBY) TUBING High Merit 1 [id number] 489752 08985 812193 10 Pressure Medical Extension Tubing (Back) (XM8188C) INFLATOR Merit Merit 1 SE0662 551667 240966 063158 15 BasixCompak Medical (UQ0587) BMW 300cm [place] 1 [id number] 924234 835177 501540 5 Ackworth 2 J Vascular wire (0233256Q) EMERGE OTW 2.5 [place] 1 [id number] 242703 316108 955028 5 [id number] x 12 balloon Scientific ([id number]) NORM RX 3.0 x Medtronic 1 [id number] 916577 8805414 759988 5 [id number] 26 stent ([id number]) EXOSEAL 6Fr Cardinal 1 EX600 938820 242262 893204 10 (EX600) Health Signature Audit [place] Stage Time Signature Unsigned Intra-Procedure 09/10/2018 Baron Frankel RN 10:08:36 AM Signatures Monitor : Racquel Seals Signature : RT Date : Time : [facility] [address] [place] [address]
[2018-09-10 07:54] VITALS: BP 179/61; Ht 162.6 cm; Wt 81.8 kg
[2018-09-10 08:14] LABS: BASOPHILS 1.2 % (0-2); EOSINOPHILS 3.1 % (0-7); HEMATOCRIT 34.7 % (36.0-48.0); HEMOGLOBIN 11.8 g/dL (12-16); LYMPHOCYTES 43.6 % (15-50); MCH 30.3 pg (26.0-34.0); MEAN PLATELET VOLUME 9.3 fL (7.4-10.4); MONOCYTES 10.8 % (2-11); NEUTROPHILS 41.3 % (40-80); PLATELET COUNT 244 10x3/uL (130-400); RDW 12.1 % (11.5-14.5); WBC 4.2 10x3/uL (4.8-10.8)
[2018-09-10 08:27] LABS: ANION GAP 11.2 mmol/L (8-16); CALCIUM 8.1 mg/dL (8.5-10.1); CREATININE - SERUM 0.9 mg/dL (0.6-1.3); POTASSIUM - SERUM 4.2 mmol/L (3.5-5.1)
--- NOTE | 2018-09-10 10:35 | NUR ---
2L NC, NO RESP DISTRESS. RIGHT GROIN 6F EXOSEAL CDI, NO BLEEDING OR HEMATOMA NOTED. NO C/O PAIN OR NAUSEA. VSS. FAMILY AT BEDSIDE, CALL LIGHT WITHIN REACH.
[2018-09-10] MEDS ORDERED: PLAVIX75 MG PO (10:39)
--- NOTE | 2018-09-10 11:05 | NUR ---
RESTING QUIETLY WITH EYES CLOSED. RIGHT GROIN 6F EXOSEAL CDI, NO BLEEDING OR HEMATOMA NOTED. 2L NC WITH NO RESP DISTRESS. DENIES ANY C/O. VSS. WILL CONTINUE TO MONITOR.
--- NOTE | 2018-09-10 11:20 | NUR ---
RIGHT GROIN 6F EXOSEAL CDI, NO BLEEDING OR HEMATOMA NOTED. 2L NC WITH NO RESP DISTRESS. VSS. CALL LIGHT WITHIN REACH.
--- NOTE | 2018-09-10 11:50 | NUR ---
CONTINUES TO REST COMFORTABLY WITH NO C/O. RIGHT GROIN 6F EXOSEAL CDI, NO BLEEDING OR HEMATOMA NOTED. DENIES ANY NEEDS. VSS. CALL LIGHT WITHIN REACH.
--- NOTE | 2018-09-10 13:10 | NUR ---
HOB ELEVATED 30 DEGREES. RIGHT GROIN 6F EXOSEAL CDI, NO BLEEDING NOTED. SIPPING ON DRINK AND EATING SANDWICH WITH NO C/O NAUSEA. VSS. WILL CONTINUE TO MONITOR CLOSELY.
--- NOTE | 2018-09-10 13:39 | NUR ---
LEFT PIV D/C'D WITH CATHETER INTACT, BAND AID TO SITE. UP TO BEDSIDE TO GET DRESSED. AMBULATED TO RESTROOM.
--- NOTE | 2018-09-10 13:52 | NUR ---
DISCHARGE INSTRUCTIONS ALONG WITH PLAVIX PRESCRIPTION GIVEN, VERBALIZED UNDERSTANDING.
--- NOTE | 2018-09-10 14:05 | NUR ---
TAKEN OUT VIA WHEELCHAIR BY CATH FISHING ROD TRIMMER. LEFT FACILITY WITH FAMILY AND ALL PERSONAL BELONGINGS.
== END 2018-09-10 14:05 | disposition home or self-care (01) ==
LOC: D.CATH 07:25
PROVIDERS: Internal Medicine Cardiovascular Disease
DX: I25.110 Atherosclerotic heart disease of native coronary artery with unstable angina pectoris (principal)
CPT/HCPCS: C9600; 93458

== ENCOUNTER 2018-09-24 07:06 | Outpatient (CLI) | payer MEDICARE, MEDICAID ==
[~2018-09-24] VITALS: Ht 162.6 cm; Wt 81.8 kg
--- NOTE | ~2018-09-24 | HEMODYNAMI ---
PATIENT:BRYAN MORRIS MEDICAL RECORD: [id number] : 39 LOCATION:[facility] ADMISSION DATE: 09/24/18 Generatedon:09/24/201810:14 Patient name: BRYAN MORRIS Patient #: [id number] SSN: : 1935 Date of study: 09/24/2018 Page: Of Hemodynamic Procedure Report Patient Data Patient Demographics Procedure consent was obtained First Name: BRYAN Gender: Female Last Name: ALEXANDRA : 1935 [facility] Initial: MEMO Age: 83 year(s) Patient #: [id number] Race: Additional ID: [id number] Contact details Address: [address] [place] [address] State: [place] City: [place] Zip code: [address] Past Medical History Allergies Allergen Reaction Date Comments Reported Other allergy 03/09/2018 AMPICILLIN, DERMEROL Other allergy 09/10/2018 Ampicillin, meperidine, ASA Other allergy 09/24/2018 AMPICILLIN Admission Admission Data Admission Date: 09/24/2018 Admission Time: 7:06 Height (in.): 65 BSA: 1.89 (m2) Height (cm.): 165.1 BMI: 29.95 (kg/m2) Weight (lbs.): 180 Weight (kg.): 81.65 Lab Results Lab Result Date: 09/24/2018 Lab Result Time: 0:00 Biochemistry Name Units Result Min Max BUN mg/dl 11 --(-*--)-- 7 18 Creatinine mg/dl 1 --(--*-)-- 0.6 1.3 CBC Name Units Result Min Max Hemoglobin g/dl 11.5 *-(----)-- 13.5 17.5 Procedure Procedure Types Cath Procedure Diagnostic Procedure Sedation Charges Moderate Sedation up to 15 minutes PCI Procedure Coronary Stent Coronary Stent Initial Coronary Stent Additional Procedure Description Procedure Date Procedure Date: 09/24/2018 Procedure Start Time: 9:39 Procedure End Time: 10:05 Procedure Staff Name Function Armen Savlador MD Performing Physician Natasha Santillan RT Monitor Giacomo Linares RT Scrub Shelli Knowles RN Nurse Procedure Data Cath Procedure Fluoroscopy Diagnostic fluoroscopy Total fluoroscopy Time: 4.7 time: 4.7 min min Diagnostic fluoroscopy Total fluoroscopy dose: 566 dose: 566 mGy mGy Contrast Material Contrast Material Type Amount (ml) Isovue 300 83 Entry Location Entry Primary Successful Side Size Upsize Upsize Entry Closure Reid ccessful Closure Location (Fr) 1 (Fr) 2 (Fr) Remarks Device Remarks Femoral Right 5 Fr Manual vein Compression Femoral Right 6 Fr Exoseal artery Short Estimated blood loss: 10 ml Procedure Complications No complications Procedure Medications Medication Administration Route Dosage 0.9% NaCl I.V. 100 ml/hr Oxygen etCO2 Nasal cannula 2 l/min Lidocaine 2% added to field 20 Heparin Flush Bag added to field 2 bags (1000units/500ml NS) Versed I.V. 2 mg Fentanyl I.V. 50 mcg Heparin Bolus I.V. 8000 units Versed I.V. 2 mg Fentanyl I.V. 50 mcg Versed I.V. 1 mg Nitroglycerin IC/IA I.C. 100 mcg Hemodynamics Rest BSA: 1.89 (m2) O2 Consumption: Estimated: 165.33 (ml/min) O2 Consumption indexed : Estimated:87.48 (ml/min/m) Heart Rate: 64 (bpm) Snapshots Pre Cath Intra NCS Post Cath Vital Signs Time Heart Resp SPO2 etCO2 NIBP (mmHg) Rhythm Pain Sedation Rate (ipm) (%) (mmHg) Status Level (bpm) 9:22:10 84 22 100 28.3 161/84(137) NSR 0 (11) 10(A) , No pain 9:26:39 70 12 98 29.7 134/62(110) NSR 0 (11) 10(A) , No pain 9:31:05 63 17 97 28.4 114/59(93) NSR 0 (11) 10(A) , No pain 9:35:23 65 10 96 32.8 116/56(86) NSR 0 (11) 10(A) , No pain 9:39:45 66 10 97 26.1 110/59(96) NSR 0 (11) 10(A) , No pain 9:44:03 68 12 96 36.6 121/58(86) NSR 0 (11) 10(A) , No pain 9:48:21 72 10 97 38.8 126/62(96) NSR 0 (11) 9(A) , No pain 9:52:37 77 10 97 22.4 113/51(88) NSR 0 (11) 10(A) , No pain 9:56:53 76 11 98 37.3 120/63(100) NSR 0 (11) 9(A) , No pain 10:01:11 83 17 97 17.9 123/62(90) NSR 0 (11) 10(A) , No pain 10:05:31 81 9 97 0 136/70(114) NSR 0 (11) 10(A) , No pain Medications Time Medication Route Dose Verified Delivered Reason Notes Effectiveness by by 9:20:58 0.9% NaCl I.V. 100 Armen Shelli used for ml/hr Modesto Knowles coach mechanic 9:21:04 Oxygen etCO2 2 Armen Shelli used for Nasal l/min [place] Knowles procedure cannula RN 9:21:09 Lidocaine 2% added 20ml Armen Armen for local to vial Modesto Salvador MD anesthetic field 9:21:13 Heparin Flush added 2 Armen Armen used for Bag to bags Mod[place] Salvador MD procedure (1000units/500ml field NS) 9:35:02 Versed I.V. 2 mg Armen Shelli for sedation [place]esto Knowles RN 9:35:10 Fentanyl I.V. 50 Armen Shelli for sedation mcg [place] Knowles RN 9:40:32 Versed I.V. 2 mg Armen Shelli for sedation [place] Knowles RN 9:40:38 Fentanyl I.V. 50 Armen Shelli for sedation mcg [place] Knowles RN 9:46:11 Heparin Bolus I.V. 8000 Armen Shelli for verifi ed units Modesto Knowles anticoagulation with Dr. YUNG Salvador 9:53:44 Versed I.V. 1 mg Armen Shelli for sedation [place] Knowles RN 9:57:10 Nitroglycerin I.C. 100 Armen Armen for IC/IA mcg [place] Salvador MD vasodilation Procedure Log Time Note 8:46:24 Signed procedure consent form obtained from patient. 8:46:25 Diagnostic Cath status Elective 8:46:27 Time tracking: Regular hours (M-F 7:00 - 5:00) 8:46:30 Plan of Care:Hemodynamics will remain stable., Cardiac rhythm will remain stable., Comfort level will be maintained., Respiratory function will remain adequate., Patient/ family verbilizes understanding of procedure., Procedure tolerated without complication., Recovers from procedure without complications.. 8:46:55 H&P Date Dictated: 09/03/2018 Within 30 days and on chart., H&P Addendum completed by physician on day of procedure. (MUST COMPLETE FOR ALL OUTPATIENTS). 8:47:11 Patient allergic to Other allergyAMPICILLIN 8:47:36 Patient Height : 65 inches 8:47:38 Patient Weight : 180 lbs 8:57:11 Lab Result : Creatinine 1 mg/dl 8:57:11 Lab Result : BUN 11 mg/dl 8:57:11 Lab Result : Hemoglobin 11.5 g/dl 9:07:37 Giacomo SHEPARD(R) sent for patient. Start room use. 9:20:49 Vital chart was started 9:20:58 0.9% NaCl 100 ml/hr I.V. was administered by Shelli Knowles RN; used for procedure; 9:21:04 Oxygen 2 l/min etCO2 Nasal cannula was administered by Shelli Knowles RN; used for procedure; 9:21:09 Lidocaine 2% 20ml vial added to field was administered by Armen Salvador MD; for local anesthetic; 9:21:13 Heparin Flush Bag (1000units/500ml NS) 2 bags added to field was administered by Armen Salvador MD; used for procedure; 9:24:02 Patient received from Pre/Post Procedure Room to CCL 1 Alert and oriented. Tansferred to table in Supine position. 9:25:11 Warm blankets applied, and patrice hugger turned on for patient comfort. 9:25:12 Correct patient and procedure confirmed by team. 9:25:12 ECG and BP/O2 sat monitors applied to patient. 9:25:14 Baseline sample Acquired. 9:25:17 Rhythm: sinus rhythm 9:25:18 Full Disclosure recording started 9:25:19 Pre-procedure instructions explained to patient. 9:25:19 Pre-op teaching completed and patient verbalized understanding. 9:25:20 Family in waiting room. 9:25:23 Patient NPO since Midnight. 9:25:24 Is patient on blood thinner?Yes 9:25:26 ACC The patient was administered the following blood thiners within the last 24 hours: ACCPlavix 9:25:28 Patient diabetic? No. 9:25:35 Previous problem with sedation/anesthesia? No ? 9:25:36 Snore? Yes 9:25:37 Sleep apnea? No 9:25:38 Deviated septum? No 9:25:39 Opens mouth fully? Yes 9:25:40 Sticks out tongue? Yes 9:25:45 Airway obstruction? Yes ASTHMA 9:25:58 Dentures? Yes OUT 9:26:01 Pre procedure: right dorsailis pedis pulse 1+ Palpable, but thready & weak; easily obliterated 9:26:04 Patient pain scale 0/10 ?. 9:26:10 IV patent on arrival in left hand with 0.9% NaCl at O. 9:26:13 Lab results completed and on chart. 9:26:16 Right groin area was prepped with chlora-prep and draped in sterile fashion 9:26:17 Alarms reviewed by R. N. 9:26:17 Sharps counted by scrub and verified by R.N. 9:26:21 Use device set CATH PACK 9:26:22 ACIST Syringe (36174) opened to sterile field. 9:26:22 ACIST Hand Control (00887) opened to sterile field. 9:26:23 ACIST Manifold (70732) opened to sterile field. 9:26:23 Medline Cath Pack ([id number]) opened to sterile field. 9:26:23 Bag Decanter (2002S) opened to sterile field. 9:26:24 DIAGNOSTIC WIRE .035 260cm J wire (176757) opened to sterile field. 9:26:43 SHEATH 6FR [place] (XLU770) opened to sterile field. 9:26:44 INFLATOR Merit BasixCompak (FL2166) opened to sterile field. 9:26:44 TUBING High Pressure Extension Tubing (Salvador) ([id number]) opened to sterile field. 9:26:44 BMW 300cm Straight [place] 2 wire ([id number]) opened to sterile field. 9:34:55 --------ALL STOP TIME OUT------ 9:34:56 Final Timeout: patient, procedure, and site verified with staff and physician. All members of the team are in agreement. 9:34:57 Right groin site verified by team. 9:35:01 Fire Safety Assessment: A--An alcohol-based skin anteseptic being used preoperatively., C--Open oxygen or nitrous oxide is being used., D--An ESU, laser, or fiber-optic light is being used. 9:35:02 Versed 2 mg I.V. was administered by Shelli Knowles RN; for sedation; 9:35:10 Fentanyl 50 mcg I.V. was administered by Shelli Knowles RN; for sedation; 9:35:23 Physical assessment completed. ASA score P 2 - A patient with mild systemic disease as per Armen Salvador MD. 9:35:27 Sedation plan: IV Moderate Sedation Medication:Versed, Fentanyl 9:38:56 Procedure started. 9:38:58 Zero performed for pressure channel P1 9:39:03 Local anesthetic to right femoral artery with Lidocaine 2% by Armen Salvador MD.INITIAL ACCESS ONLY 9:39:21 GUIDE 6FR XBLAD 3.5 catheter ([id number]) opened to sterile field. 9:40:32 Versed 2 mg I.V. was administered by Shelli Knowles RN; for sedation; 9:40:38 Fentanyl 50 mcg I.V. was administered by Shelli Knowles RN; for sedation; 9:42:27 A 5 Fr sheath was inserted into the Right Femoral vein 9:44:26 A 6 Fr Short sheath was inserted into the Right Femoral artery 9:45:00 6 Fr XBLAD 3.5 guide catheter was inserted over the wire 9:46:11 Heparin Bolus 8000 units I.V. was administered by Shelli Knowles RN; for anticoagulation; verified with Dr. Salvador 9:48:40 BMW 300 wire advanced. 9:48:54 Wire advanced across lesion. 9:51:33 Place stent Inflation Number: 1 A NORM OTW 2.25 x 15 stent ([id number]) was prepped and advanced across the 1st Ob Yin. The stent was deployed at 10 WALT for 0:10 (min:sec). 9:52:40 Stent catheter was removed intact over wire. 9:53:44 Versed 1 mg I.V. was administered by Shelli Knowles RN; for sedation; 9:55:10 Place stent Inflation Number: 1 A NORM RX 3.0 x 15 stent ([id number]) was prepped and advanced across the Prox CX. The stent was deployed at 12 WALT for 0:10 (min:sec). 9:55:13 Stent catheter was removed intact over wire. 9:57:10 Nitroglycerin IC/IA 100 mcg I.C. was administered by Armen Salvador MD; for vasodilation; 9:58:04 EXOSEAL 6Fr (EX600) opened to sterile field. 9:58:36 Wire removed. 9:58:37 Guide catheter removed. 10:00:50 Sheath removed intact; hemostasis achieved with Exoseal to the Right Femoral artery. 10:00:58 Procedure ended.(Physican Out) 10:01:18 Sheath removed intact; hemostasis achieved with Manual Compression to the Right Femoral vein. 10:01:35 Fluoroscopy time 04.70 minutes. 10:01:39 Flurop Dose total: 566 10:01:39 Fluoroscopy dose: 566 mGy 10:01:43 Contrast amount:Isovue 300 83ml. 10:01:47 Sharps counted by scrub and verified by R.N. 10:01:54 Post-op/insertion site Right Femoral artery dressed using a 4 x 4 and Tegaderm. 10:01:57 Post-procedure physical assessment completed. ASA score P 2 - A patient with mild systemic disease as per Armen Salvador MD. 10:02:02 Post procedure rhythm: unchanged. 10:02:04 Estimated blood loss: 10 ml 10:02:05 Post procedure instruction explained to patient.Patient verbalizes understanding. 10:02:05 Patient needs reinforcement of post procedure teaching. 10:02:29 Procedure type changed to Cath procedure, Diagnostic procedure, Sedation Charges, Moderate Sedation up to 15 minutes, PCI procedure, Coronary Stent, Coronary Stent Initial, Coronary Stent Additional 10:04:23 Procedure and supply charges have been captured, reviewed, submitted and are correct. 10:04:27 Procedure Complication : No complications 10:05:02 Vital chart was stopped 10:05:03 See physician's report for complete and final results. 10:05:06 Report given to Pre/Post Procedure Room. 10:05:15 Patient transfered to Pre/Post Procedure Room with Bed. 10:05:17 Procedure ended. 10:05:17 Full Disclosure recording stopped 10:05:20 End room use (Document Last) Intervention Summary Intervention Notes Time ActionType Lesion and Equipment Used Action# Pressure Duration Attributes 9:51:33 Place stent 1st Ob Yin NORM OTW 2.25 1 10 00:10 x 15 stent ([id number]) 9:55:10 Place stent Prox CX NORM RX 3.0 x 1 12 00:10 15 stent ([id number]) Device Usage Item Name Manufacture Quantity Catalog Hospital Part Current [facility] Lot# / Number Charge Number Stock Stock Serial# Code ACIST Syringe Acist 1 34086 782874 303338 498354 20 (16959) Medical Systems Inc ACIST Hand Acist 1 04618 085009 210416 952018 5 Control Medical (27960) Systems Inc ACIST Manifold Acist 1 14641 857867 787459 947884 5 (26420) Medical Systems Inc Medline Cath Medline 1 [id number] 939801 26003 299688 5 Pack ([id number]) Bag Decanter Microtek 1 2002S 135869 28438 968263 5 (2001S) Medical Inc. DIAGNOSTIC [place] 1 670419 642875 160383 628604 30 WIRE .035 260cm J wire (103350) SHEATH 6FR Terumo 1 RLD286 345193 248571 458194 40 [place] (MPU062) INFLATOR Merit Merit 1 ON0365 820794 571830 419317 15 BasixCompak Medical (UZ9372) TUBING High Merit 1 [id number] 493774 10036 253450 10 Pressure Medical Extension Tubing (Salvador) ([id number]) BMW 300cm Flores 1 1268226 828922 504766 341587 5 Straight Vascular [place] 2 wire (4881766) GUIDE 6FR Cardinal 1 [id number] 629398 774335 066556 10 XBLAD 3.5 Health catheter ([id number]) NORM OTW 2.25 Medtronic 1 [id number] 939002 09432 269542 5 x 15 stent ([id number]) NORM RX 3.0 x Medtronic 1 [id number] 144908 9038442 977705 5 [id number] 15 stent ([id number]) EXOSEAL 6Fr Cardinal 1 EX600 236889 571901 547671 10 (EX600) Health Signature Audit [place] Stage Time Signature Unsigned Intra-Procedure 09/24/2018 Natasha Santillan 10:14:14 AM RT(R) Signatures Monitor : Natasha Santillan Signature : RT Date : Time : [id number] [place] [address]
[2018-09-24 07:33] VITALS: BP 127/57; Ht 162.6 cm; Wt 81.8 kg
[2018-09-24 08:01] LABS: BASOPHILS 0.8 % (0-2); EOSINOPHILS 3.3 % (0-7); HEMATOCRIT 33.5 % (36.0-48.0); HEMOGLOBIN 11.5 g/dL (12-16); IMMATURE GRANULOCYTES 0.2 % (0-5); MCH 30.2 pg (26.0-34.0); MCHC 34.3 g/dL (31.0-37.0); MCV 87.9 fL (80.0-100.0); MEAN PLATELET VOLUME 9.4 fL (7.4-10.4); MONOCYTES 12.9 % (2-11); NEUTROPHILS 51.8 % (40-80); PLATELET COUNT 240 10x3/uL (130-400); RBC 3.81 10x6/uL (4.00-5.40); RDW 12.1 % (11.5-14.5); WBC 4.8 10x3/uL (4.8-10.8)
[2018-09-24 08:24] LABS: ANION GAP 14.5 mmol/L (8-16); CALCIUM 8.2 mg/dL (8.5-10.1); CARBON DIOXIDE 24.8 mmol/L (21.0-32.0); POTASSIUM - SERUM 4.3 mmol/L (3.5-5.1)
--- NOTE | 2018-09-24 10:40 | NUR ---
PATIENT RESTING, VSS ON ROOM AIR. SMALL AMOUNT OF BLOOD ON RIGHT GROIN DRESSING, PRESSURE HELD FOR 10 MINUTES WITH NO FURTHER SIGNS AND SYMPTOMS OF BLEEDING OR HEMATOMA. WILL CONTINUE TO MONITOR.
--- NOTE | 2018-09-24 11:10 | NUR ---
PATIENT RESTING, VSS ON 2L NC. RIGHT GROIN DRESSING IS CDI, NO S/S OF BLEEDING OR HEMATOMA.
--- NOTE | 2018-09-24 11:40 | NUR ---
PATIENT RESTING, VSS ON 1L NC. RIGHT GROIN DRESSING IS CDI, NO S/S OF BLEEDING OR HEMATOMA. NO C/O PAIN, NUMBNESS, OR TINGLING.
--- NOTE | 2018-09-24 12:10 | NUR ---
PATIENT RESTING, VSS ON 1L NC. RIGHT GROIN DRESSING IS CDI, NO S/S OF BLEEDING OR HEMATOMA.
--- NOTE | 2018-09-24 12:40 | NUR ---
PATIENT RESTING. VSS ON 1L NC. RIGHT GROIN DRESSING IS CDI, NO S/S OF BLEEDING OR HEMATOMA NOTED. NO C/O PAIN, NUMNBESS, OR TINGLING.
--- NOTE | 2018-09-24 13:10 | NUR ---
HEAD OF BED ELEVATED TO 30 DEGREES. RIGHT GROIN DRESSING IS CDI, NO S/S OF BLEEDING OR HEMATOMA. PATIENT EATING TURKEY SANDWICH AND DRINKING COFFEE WITH NO N/V.
--- NOTE | 2018-09-24 13:40 | NUR ---
HEAD OF BE ELEVATED TO 90 DEGREES, RIGHT GROIN DRESSING IS CDI, NO S/S OF BLEEDING OR HEMATOMA. IV REMOVED. EDUCATION REGARDING DISCHARGE INSTRUCTIONS AND MEDICATIONS GIVEN TO PATIENT AND FAMILY MEMBER, ALL QUESTIONS ANSWERED. VSS ON ROOM AIR.
--- NOTE | 2018-09-24 14:10 | NUR ---
PATIENT TRANSPORTED VIA WHEELCHAIR TO CAR WITH FAMILY DRIVING, ALL BELONGINGS WITH PATIENT.
== END 2018-09-24 14:10 ==
LOC: D.CATH 07:06
PROVIDERS: Internal Medicine Cardiovascular Disease
DX: I25.119 Atherosclerotic heart disease of native coronary artery with unspecified angina pectoris (principal); Z01.812 Encounter for preprocedural laboratory examination

== ENCOUNTER 2018-12-25 16:18 | Observation (INO) | payer MEDICARE, MEDICAID ==
[~2018-12-25] VITALS: Ht 162.6 cm; Wt 84.2 kg
[2018-12-25 17:04] LABS: BASOPHILS 0.7 % (0-2); EOSINOPHILS 1.8 % (0-7); HEMATOCRIT 34.4 % (36.0-48.0); HEMOGLOBIN 11.9 g/dL (12-16); LYMPHOCYTES 18.4 % (15-50); MCH 30.4 pg (26.0-34.0); MCHC 34.6 g/dL (31.0-37.0); MCV 87.8 fL (80.0-100.0); MEAN PLATELET VOLUME 9.4 fL (7.4-10.4); MONOCYTES 10.2 % (2-11); NEUTROPHILS 68.9 % (40-80); PLATELET COUNT 237 10x3/uL (130-400); RBC 3.92 10x6/uL (4.00-5.40); RDW 11.4 % (11.5-14.5); WBC 4.5 10x3/uL (4.8-10.8)
[2018-12-25 17:13] LABS: ALBUMIN 3.7 g/dL (3.4-5.0); ANION GAP 9.5 mmol/L (8-16); BILIRUBIN - TOTAL 0.28 mg/dL (0.2-1.3); CALCIUM 8.6 mg/dL (8.5-10.1); CARBON DIOXIDE 28.1 mmol/L (21.0-32.0); CREATININE - SERUM 0.9 mg/dL (0.6-1.3); POTASSIUM - SERUM 4.6 mmol/L (3.5-5.1); PROTEIN - SERUM 6.4 g/dL (6.4-8.2)
[2018-12-25 17:37] LABS: CKMB 1.6 U/L (0.0-3.6); CREATINE KINASE 90 UL (21-215); TROPONIN-I < 0.017 ng/mL (0.000-0.060)
[2018-12-25 17:54] LABS: INR 0.93 (0.85-1.17)
[2018-12-25 17:55] LABS: APTT 32.4 SECONDS (22.8-39.4)
[2018-12-25 17:57] VITALS: BP 143/68
[2018-12-25 18:25] VITALS: BP 169/76
--- NOTE | 2018-12-25 19:00 | NUR ---
ASSUMED CARE OF PATIENT, RESTING QUIETLY AT THIS TIME, SISTER AT BEDSIDE,
--- NOTE | 2018-12-25 19:10 | NUR ---
BS REPORT TO YUNG AC BY SBAR FORMAT
--- NOTE | 2018-12-25 19:53 | NUR ---
ATTEMPTED TO CALL REPORT, WAS PLACED ON HOLD NO ONE EVER CAME BACK,
--- NOTE | 2018-12-25 19:54 | NUR ---
WAS PAGED TO RECEIVE REPORT. WAS IN PATIENTS ROOM AND LEFT TO TAKE REPORT AND ER NURSE HAD HUNG UP. IMMEDIATELY CALLED BACK AND WAS PLACED ON HOLD BY BRI. AFTER 8 MINUTES WAS TOLD YASHIRA WOULD CALL BACK BECAUSE SHE WAS BUSY
--- NOTE | 2018-12-25 19:55 | NUR ---
SPOKE WITH FAX MACHINE REPAIRER ABOUT UNSUCCESFUL ATTEMPT TO RECEIVE REPORT FROM ER.
[2018-12-25 20:00] VITALS: BP 159/77
--- NOTE | 2018-12-25 20:20 | NUR ---
ER NURSE CALLED TO GIVE REPORT FOR SECOND TIME. THIS NURSE WAS ASSISTING PT WITH BED SIDE COMMODE. WENT TO TAKE REPORT AT 2021 AND NURSE HAD HUNG UP. IMMEDIATELY RETURNED CALL AND CURRENTLY ON HOLD.
--- NOTE | 2018-12-25 20:30 | NUR ---
PROVIDER TO BEDSIDE TO APPLY SPLINT TO LEFT ARM, PATIENT TOLERATED PROCEDURE WELL.
--- NOTE | 2018-12-25 20:30 | NUR ---
REPORT RECEIVED FROM YASHIRA BARRAGAN
--- NOTE | 2018-12-25 23:30 | NUR ---
ICE APPLIED ORDERED IN DOCTORS NOTE. CONSENTS SIGNED AND IN CHART. INFORMED PT THAT URINE SPECIMEN IS NEEDED. FALL PRECAUTIONS IN PLACE.
[2018-12-25 23:52] VITALS: BP 148/58; Ht 162.6 cm; Wt 84.2 kg
[2018-12-26] VITALS (7 sets, daily range): BP systolic 138–162; BP diastolic 57–82
--- NOTE | 2018-12-26 02:01 | NUR ---
URINE SAMPLE OBTAINED AND DELIVERED TO LAB PER ORDER.
[2018-12-26 02:23] LABS: APPEARANCE CLEAR (CLEAR); BILIRUBIN NEGATIVE (NEGATIVE); COLOR YELLOW (YELLOW); GLUCOSE NEGATIVE (NEGATIVE); KETONE NEGATIVE (NEGATIVE); NITRITE NEGATIVE (NEGATIVE); PROTEIN NEGATIVE (NEGATIVE); UROBILINOGEN NORMAL (NORMAL)
--- NOTE | 2018-12-26 02:35 | NUR ---
ADMINISTERED PAIN MEDICINE PER ORDER. PT TOLERATED WELL.
--- NOTE | 2018-12-26 03:28 | NUR ---
PT IN BED IN SUPINE POSITION. ALERT AND ORIENT X 4. RESPIRATIONS EVEN AND UNLABORED. VS STABLE AND AFEBRILE. NO VISUAL CUES OF DISTRESS NOTED. DENIES ANY OTHER NEEDS AT THIS TIME. BED LOW, SIDE RAILS UP X2. CALL LIGHT IN REACH. WILL CONTINUE TO MONITOR.
[2018-12-26 05:41] LABS: BASOPHILS 0.4 % (0-2); EOSINOPHILS 2.1 % (0-7); HEMATOCRIT 31.2 % (36.0-48.0); HEMOGLOBIN 10.7 g/dL (12-16); IMMATURE GRANULOCYTES 0.2 % (0-5); LYMPHOCYTES 25.3 % (15-50); MCH 30.2 pg (26.0-34.0); MCHC 34.3 g/dL (31.0-37.0); MCV 88.1 fL (80.0-100.0); MEAN PLATELET VOLUME 9.4 fL (7.4-10.4); MONOCYTES 15.8 % (2-11); NEUTROPHILS 56.2 % (40-80); PLATELET COUNT 220 10x3/uL (130-400); RBC 3.54 10x6/uL (4.00-5.40); RDW 11.8 % (11.5-14.5); WBC 4.9 10x3/uL (4.8-10.8)
[2018-12-26 05:49] LABS: INR 1.04 (0.85-1.17); PROTIME 13.1 SECONDS (11.6-15.0)
[2018-12-26 06:02] LABS: ANION GAP 9.9 mmol/L (8-16); CALCIUM 7.3 mg/dL (8.5-10.1); CARBON DIOXIDE 28.1 mmol/L (21.0-32.0); CREATININE - SERUM 0.8 mg/dL (0.6-1.3)
--- NOTE | 2018-12-26 07:43 | NUR ---
AWAKE AND ALERT. ORIENTED X3. NO C/O AT THIS TIME. NPO FOR SURGERY LATER TODAY. LUNGS ARE CLEAR BILATERALLY, NO COUGH NOTED. SKIN IS INTACT WITHOUT REDNESS. IV TO RIGHT FOREARM IS PATENT WITHOUT REDNESS AT INSERTION SITE. NEUROVASCULAR CHECK TO LEFT ARM WNL. DENIES NEEDS.
--- NOTE | 2018-12-26 09:51 | NUR ---
RESTING QUIETLY IN BED. DENIES NEEDS. .
--- NOTE | 2018-12-26 11:45 | NUR ---
REQUESTED AND GIVEN 4MG MORPHINE SLOW IVP FOR C/O LEFT ARM PAIN LEVEL 8. WILL MONITOR. UP TO BR WITH MIN ASSIST OF ONE. VOIDED CLEAR YELLOW URINE WITHOUTT DIFFICULTY.
--- NOTE | 2018-12-26 15:00 | NUR ---
UP TO BR WITH MIN ASSIST OF ONE. VOIDED WITHOUT DIFFICULTY. SISTER AT BEDSIDE.
--- NOTE | 2018-12-26 18:27 | NUR ---
CONTINUES TO BE NPO. WAITING ON SURGERY. SISTER IN ROOM. DISCUSSED HER STAYING SINCE IT IS LATE ALREADY AFTER SURGERY FOR SAFETY REASONS. SISTER IS IN AGREEMENT. WILL MONITOR.
--- NOTE | 2018-12-26 19:20 | NUR ---
LEFT UNIT WITH SURGICAL STAFF
--- NOTE | 2018-12-26 23:36 | NUR ---
PT PRESENTS WITH WET LUNG SOUNDS. GAVE 20 MG LASIX IV FIRST DOSE.
[2018-12-27 00:20] VITALS: BP 152/79
--- NOTE | 2018-12-27 00:47 | NUR ---
PT LUNGS IMPROVING GREATLY. CURRENTLY WEANING DOWN FROM 4L TO 3L. UP AND AMBULATED TO BATHROOM WITH 450 OUTPUT.
--- NOTE | 2018-12-27 02:58 | NUR ---
I have reviewed this patient and I concur with the Shift Assessment completed by the Licensed Practical Nurse today this shift.
[2018-12-27 05:55] VITALS: BP 132/56
--- NOTE | 2018-12-27 06:19 | NUR ---
LUNG SOUNDS REMAIN UNCHANGED AT THIS TIME. ATTEMPTED TO LOWER O2 FROM 3 TO 2 L VIA NASAL CANNULA. PT SATURATION DECREASED TO 92. INCREASED BACK TO 2.5 AND CURRENTLY 94%. BEFORE SURGERY PT WAS 94-95% ON ROOM AIR,
--- NOTE | 2018-12-27 06:55 | OP ---
PATIENT NAME: BRYAN MORRIS MEDICAL RECORD: [id number] :39 LOCATION:[facility] ADMISSION DATE:12/25/18 SURGEON: BRODERICK SU DO DATE OF OPERATION: 12/26/2018 PROCEDURE PERFORMED: Left distal radius open reduction and internal fixation and left ulna closed reduction percutaneous pinning. PREOPERATIVE DIAGNOSIS: Displaced left distal radius and ulna fracture. POSTOPERATIVE DIAGNOSIS: Displaced left distal radius and ulna fracture. INDICATIONS: Ms. Morris is an 83-year-old female who was getting out of the shower, tripped and fell onto her left wrist. She noticed some pain in it and then was x-rayed at primary care's office and sent to the ER here. New x-rays were done, which showed a displaced distal radius fracture, extra-articular and a displaced ulnar styloid fracture. The patient was admitted for overnight last night for surgery today and then she was informed of the risks and benefits of procedure including damage to the vessels and nerves, median nerve especially, also infection, bleeding, need for further surgery, malunion, nonunion, and failure of fixation. She was okay with those risks and signed the consent. SURGEON: Broderick Su DO DESCRIPTION OF PROCEDURE: The patient had a block by anesthesia preoperatively, taken to the operative suite, laid in supine position, given general anesthetic. Left upper extremity was prepped and draped in sterile fashion. A timeout was performed, everyone was in agreement with the correct side, site, patient and procedure. The left upper extremity was then exsanguinated with an Esmarch. She had been given 1 gram of vancomycin prior to this and then, the tourniquet was inflated to 250 mmHg for 45 minutes. Then, first began with the ulna with a K-wire going through the ulnar styloid, diagonal through the fracture and perpendicular to the fracture and then an #18 Acutrak screw, #22 was put in, initially was seen to be too long. #18 Acutrak screw was then put in having nice compression on the fracture site. The attention was then drawn to the distal radius. Incision began over the flexor carpi radialis down to the flexor carpi radialis and then the tendon sheath was moved on the dorsal side of it. The tendon was taken radially and dissection was made down to the distal radius. The pronator quadratus was then taken off of the radial side of the radius and the fracture was reduced on the radius and the plate was put in. Once the plate was in good position, it was pinned into place and then put 3 locking screws distally and then 1 in the shaft and then, 1 more in the styloid of the radius and then 2 more locking screws in the shaft. The tourniquet was then let down. Any bleeding was coagulated and the site was closed with 3-0 Vicryl interrupted fashion, 4-0 Monocryl in the skin and Prineo glue placed on the skin of the poke hole for the Acutrak screw on the ulna closed with 4-0 Monocryl in an inverted interrupted fashion. The patient was then dressed with Adaptic, 4 x 4s, and cast padding and then placed in a volar splint and secured that with the Drake wrap. She was awakened and taken to the recovery in stable condition. OPERATIVE REPORT [id number] BRYAN MORRIS BLOOD LOSS: Minimal. COMPLICATIONS: None. TRANSINT:[id number] Voice Confirmation ID: [id number] DOCUMENT ID: [id number] BRODERICK SU DO at 0655 CC: [id number] DICTATION DATE: 12/26/182126 VIOLIN RESTORER: 12/26/18 6777 ADM IN [facility] [address] [place] [address]
[2018-12-27 06:58] LABS: HEMATOCRIT 32.5 % (36.0-48.0)
[2018-12-27] MEDS ORDERED: HYDROCODON-ACE1 EA10 PO (07:18)
[2018-12-27 08:13] VITALS: BP 131/46
[2018-12-27] MEDS ORDERED: MIRALAX17 GM PO (09:53)
--- NOTE | 2018-12-27 11:49 | MORECARE ---
CASE MANAGEMENT DISCHARGE SUMMARY PATIENT: BRYAN MORRIS UNIT: [id number] ADM DATE: 12/25/18 AGE: 83 : 37 SEX: F ROOM/BED: D.2207 AUTHOR: ZEHRA FOFANA PHYSICIAN: REFERRING PHYSICIAN: SAJAN MARTIN MD DATE OF SERVICE: 12/27/18 Discharge Plan Patient Name: BRYAN MORRIS Facility[facility]:[place] : 1935 Planned Disposition: Home Anticipated Discharge Date: 12/26/18 Discharge Date: Expected LOS: 1 Initial Reviewer: [email or web address] Initial Review Date: 12/25/2018 Generated: 12/27/18 12:49 pm Comments DCP- Discharge Planning Updated by [email or web address]: Jolanta Sen on 12/26/18 5:[address] 1753 PATIENT IS SLEEPING SOUNDLY. SHE IS SCHEDULED TO GO TO SURGERY TODAY PER HER SISTER, PARIS, AT THE BEDSIDE. SHE HAS BEEN MEDICATED X 5 WITHIN LESS THAN 24 HRS W/ MSO4 4 MGM IV FOR PAIN. SHE HAD NAORCO 10 MGM PO IN THE ER. VITAL SIGNS FAIRLY STABLE. CT SCAN DONE. PATIENT HIT HER HEAD WHEN SHE FELL. CXR AND WRIST FILMS DONE. ROBERTSON EXPLAINED TO HER SISTER, PARIS, PATIENT IS TOO SEDATED. REPORTEDLY PATIENT ALSO HAS BEEN PREMEDICATED FOR SURGERY. SIGNATURE OBTAINED. COPY TO THE PATIENT. COPY TO THE CHART. Coverage Notice Reviewer: [id number] - Jolanta Sen Notice Issued Date-Time: 12/26/2018 18:03 Notice Type: Medicare Outpatient Observation Notice Notice Delivered To: Family Member Relationship to Patient: Sister Stereo Compiler Name: PARIS REYES Delivery Method: HAND - Hand Delivered Kristen Days: Prior Verbal Notification: Recipient Understood Notice: Yes Recipient Signature: Yes Med Rec Note Co-signed by Attending: Coverage Notice Comment: ROBERTSON FORM EXPLAINED TO THE PATIENT' SISTER. THE PATIENT IS TOO SEDATED. SIGNATURE OBTAINED. COPY TO THE PATIENT. COPY TO THE HARD COVER CHART. Patient Name: BRYAN MORRIS Page [phone] at 1149 All edits/amendments must be made on the electronic document DICTATION DATE: 12/27/181148 ORNAMENTAL IRON WORKER: MICHAEL 12/27/18 114 RPT#: [id number] DC DATE: STATUS: ADM IN [facility] [address] [place] [address] END OF REPORT
--- NOTE | 2018-12-27 11:56 | MORECARE ---
CASE MANAGEMENT DISCHARGE SUMMARY PATIENT: BRYAN MORRIS UNIT: [id number] ADM DATE: 12/25/18 AGE: 83 : 37 SEX: F ROOM/BED: D.2206 AUTHOR: ZEHRA FOFANA PHYSICIAN: REFERRING PHYSICIAN: SAJAN MARTIN MD DATE OF SERVICE: 12/27/18 Discharge Plan Patient Name: BRYAN MORRIS Facility: [facility]:[place] : 1935 Planned Disposition: Home Anticipated Discharge Date: 12/26/18 Discharge Date: Expected LOS: 1 Initial Reviewer: [id number] Initial Review Date: 12/25/2018 Generated: 12/27/18 12:56 pm Comments DCP- Discharge Planning Updated by [id number]: Jolanta Sen on 12/26/18 5:[address] 1753 PATIENT IS SLEEPING SOUNDLY. SHE IS SCHEDULED TO GO TO SURGERY TODAY PER HER SISTER, PARIS, AT THE BEDSIDE. SHE HAS BEEN MEDICATED X 5 WITHIN LESS THAN 24 HRS W/ MSO4 4 MGM IV FOR PAIN. SHE HAD NAORCO 10 MGM PO IN THE ER. VITAL SIGNS FAIRLY STABLE. CT SCAN DONE. PATIENT HIT HER HEAD WHEN SHE FELL. CXR AND WRIST FILMS DONE. ROBERTSON EXPLAINED TO HER SISTER, PARIS, PATIENT IS TOO SEDATED. REPORTEDLY PATIENT ALSO HAS BEEN PREMEDICATED FOR SURGERY. SIGNATURE OBTAINED. COPY TO THE PATIENT. COPY TO THE CHART. Coverage Notice Reviewer: [id number] - Jolanta Sen Notice Issued Date-Time: 12/26/2018 18:03 Notice Type: Medicare Outpatient Observation Notice Notice Delivered To: Family Member Relationship to Patient: Sister Tile Installer Name: PARIS REYES Delivery Method: HAND - Hand Delivered Kristen Days: Prior Verbal Notification: Recipient Understood Notice: Yes Recipient Signature: Yes Med Rec Note Co-signed by Attending: Coverage Notice Comment: ROBERTSON FORM EXPLAINED TO THE PATIENT' SISTER. THE PATIENT IS TOO SEDATED. SIGNATURE OBTAINED. COPY TO THE PATIENT. COPY TO THE HARD COVER CHART. Last DP export: 12/27/18 10:49 a Patient Name: BRYAN MORRIS Page [id number] at 1156 All edits/amendments must be made on the electronic document DICTATION DATE: 12/27/186 FAMILY AND MARRIAGE COUNSELLOR: MICHAEL 12/27/18 1156 RPT#: [id number] DC DATE: STATUS: ADM IN [facility] [address] [place] [address] END OF REPORT
--- NOTE | 2018-12-27 11:58 | NUR ---
FAMILY IN ROOM. WAITING FOR DISCHARGE. WCTM.
[2018-12-27 12:37] VITALS: BP 142/64
--- NOTE | 2018-12-27 13:59 | NUR ---
PULSE OX AT 96% ON ROOM AIR. DISCHARGE INSTRUCTIONS GIVEN. PATIENT VERBALIZED UNDRESTANDING. IV THERAPY DC'ED TIP INTACT
--- NOTE | 2018-12-27 14:17 | MORECARE ---
CASE MANAGEMENT DISCHARGE SUMMARY PATIENT: BRYAN MORRIS UNIT: [id number] ADM DATE: 12/25/18 AGE: 83 : 37 SEX: F ROOM/BED: D.0502 AUTHOR: CT,DOC PHYSICIAN: REFERRING PHYSICIAN: SAJAN MARTIN MD DATE OF SERVICE: 12/27/18 Discharge Plan Patient Name: BRYAN MORRIS Facility: [facility]:[place] : 1935 Planned Disposition: Home Anticipated Discharge Date: 12/26/18 Discharge Date: Expected LOS: 1 Initial Reviewer: [id number] Initial Review Date: 12/25/2018 Generated: 12/27/18 3:16 pm Comments DCP- Discharge Planning Updated by [email or web address]: Jolanta Sen on 12/26/18 5:[address] 1753 PATIENT IS SLEEPING SOUNDLY. SHE IS SCHEDULED TO GO TO SURGERY TODAY PER HER SISTER, PARIS, AT THE BEDSIDE. SHE HAS BEEN MEDICATED X 5 WITHIN LESS THAN 24 HRS W/ MSO4 4 MGM IV FOR PAIN. SHE HAD NAORCO 10 MGM PO IN THE ER. VITAL SIGNS FAIRLY STABLE. CT SCAN DONE. PATIENT HIT HER HEAD WHEN SHE FELL. CXR AND WRIST FILMS DONE. ROBERTSON EXPLAINED TO HER SISTER, PARIS, PATIENT IS TOO SEDATED. REPORTEDLY PATIENT ALSO HAS BEEN PREMEDICATED FOR SURGERY. SIGNATURE OBTAINED. COPY TO THE PATIENT. COPY TO THE CHART. DCPIA - Discharge Planning Initial Assessment Updated by [id number]: Jolanta Sen on 12/27/18 2:12 pm * Is the patient Alert and Oriented? Yes * How many steps to enter\exit or inside your home? 1 STEP W/ * PCP DR MONTEJO * Pharmacy [facility] * Preadmission Environment Home Alone * ADLs Independent * Equipment Shower Chair * Other Equipment DENIES ANY ADDITIONAL DME * List name and contact numbers for known caregivers / representatives who currently or will assist patient after discharge: PARIS REYES SISTER [phone] * Verbal permission to speak to the caregivers and representatives has been obtained from the patient. Yes * Community resources currently utilized None * Please name any agencies selected above. N/A * Additional services required to return to the preadmission environment? Yes * Can the patient safely return to the preadmission environment? Yes * Has this patient been hospitalized within the prior 30 days at any hospital? No Coverage Notice Reviewer: [id number] Evelyn Sen Notice Issued Date-Time: 12/26/2018 18:03 Notice Type: Medicare Outpatient Observation Notice Notice Delivered To: Family Member Relationship to Patient: Sister Claim Trainee Name: PARIS REYES Delivery Method: HAND - Hand Delivered Kristen Days: Prior Verbal Notification: Recipient Understood Notice: Yes Recipient Signature: Yes Med Rec Note Co-signed by Attending: Coverage Notice Comment: ROBERTSON FORM EXPLAINED TO THE PATIENT' SISTER. THE PATIENT IS TOO SEDATED. SIGNATURE OBTAINED. COPY TO THE PATIENT. COPY TO THE HARD COVER CHART. Last DP export: 12/27/18 10:56 a Patient Name: BRYAN MORRIS Page [id number] at 1417 All edits/amendments must be made on the electronic document DICTATION DATE: 12/27/181415 INSTRUMENT SETTER: MICHAEL 12/27/181415 RPT#: [id number] DC DATE: STATUS: ADM IN [facility] [address] [place] [address] END OF REPORT
--- NOTE | 2018-12-27 15:02 | MORECARE ---
CASE MANAGEMENT DISCHARGE SUMMARY PATIENT: RBYAN MORRIS UNIT: [id number] ADM DATE: 12/25/18 AGE: 83 : 37 SEX: F ROOM/BED: D.6392 AUTHOR: CT,DOC PHYSICIAN: REFERRING PHYSICIAN: SAJAN MARTIN MD DATE OF SERVICE: 12/27/18 Discharge Plan Patient Name: BRYAN MORRIS Facility: [facility]:[place] : 1935 Planned Disposition: Home Anticipated Discharge Date: 12/26/18 Discharge Date: 12/27/2018 Expected LOS: 1 Initial Reviewer: [id number] Initial Review Date: 12/25/2018 Generated: 12/27/18 4:01 pm Comments DCP- Discharge Planning Updated by [email or web address]: Jolanta Sen on 12/27/18 2:[address] LATE ENTRY 0945 CM VISITED W/ THE PATIENT AND HER SISTER AT THE BEDSIDE. CM ADVISED SHE WOULD LIKELY BE DISCHARGED TO HOME THIS AFTERNOON. CM DISCUSSED OPTIONS FOR HOME HEALTH CARE AND SKILLED FACILITY CARE. PATIENT STATED SHE HAD HAD HOME HEALTH ONE TIME AND IT WENT VERY POORLY. SHE DID NOT HAVE A GOOD EXPERIENCE. CM PROVIDED THE HOME HEALTH PROVIDER LIST. PATIENT STATED SHE WOULD THIINK ABOUT IT. HER SISTER LIVES JUST A FEW FEET AWAY. THE SISTER HAS BEEN AT THE BEDSIDE SINCE PT'S ADMISSION. PATIENT STATES THEY HELP ONE ANOTHER. PATIENT HAS A CAT AND DOG. WHEN SHE GOES TO THE MAILBOX SHE HAS TO STOP THREE TIMES. STATES SHE TRIES TO BE CAREFUL SO THAT SHE WILL NOT FALL. DOES HAVE A FEW POTENTIAL FALL FACTORS. HAS A SHOWER CHAIR IN THE TUB FOR SAFETY. STATES SHE HAS A WALKER. SHE HAS BEEN UP TO THE BATHROOM IN HER ROOM. PHYSICAL THERAPY EVAL REQUESTED. EVAL COMPLETED. PATIENT ADVISED PHYSICAL THERAPY SHE DOES NOT WANT HOME HEALTH. 1400 CM REVISITED. PATIENT DECLINED HOME HEALTH. PATIENT CHOICE FORM REFUSAL OF SERVICE SIGNATURE OBTAINED. COPY TO THE CHART. PATIENT DOES HAVE PROVIDER LIST. CM ADVISED HOW TO OBTAIN HOME HEALTH IF SHE CHANGES HER MIND. SISTER, PARIS, PROVIDED TRANSPORTATION. DCP- Discharge Planning Updated by [id number]: Jolanta Sen on 12/26/18 5:[address] 1753 PATIENT IS SLEEPING SOUNDLY. SHE IS SCHEDULED TO GO TO SURGERY TODAY PER HER SISTER, PARIS, AT THE BEDSIDE. SHE HAS BEEN MEDICATED X 5 WITHIN LESS THAN 24 HRS W/ MSO4 4 MGM IV FOR PAIN. SHE HAD NAORCO 10 MGM PO IN THE ER. VITAL SIGNS FAIRLY STABLE. CT SCAN DONE. PATIENT HIT HER HEAD WHEN SHE FELL. CXR AND WRIST FILMS DONE. ROBERTSON EXPLAINED TO HER SISTER, PARIS, PATIENT IS TOO SEDATED. REPORTEDLY PATIENT ALSO HAS BEEN PREMEDICATED FOR SURGERY. SIGNATURE OBTAINED. COPY TO THE PATIENT. COPY TO THE CHART. DCPIA - Discharge Planning Initial Assessment Updated by [id number]: Jolanta Sen on 12/27/18 2:12 pm * Is the patient Alert and Oriented? Yes * How many steps to enter\exit or inside your home? 1 STEP W/ * PCP DR MONTEJO * Pharmacy [facility] * Preadmission Environment Home Alone * ADLs Independent * Equipment Shower Chair * Other Equipment DENIES ANY ADDITIONAL DME * List name and contact numbers for known caregivers / representatives who currently or will assist patient after discharge: PARIS REYES SISTER [phone] * Verbal permission to speak to the caregivers and representatives has been obtained from the patient. Yes * Community resources currently utilized None * Please name any agencies selected above. N/A * Additional services required to return to the preadmission environment? Yes * Can the patient safely return to the preadmission environment? Yes * Has this patient been hospitalized within the prior 30 days at any hospital? No Coverage Notice Reviewer: [id number] - Jolanta Sen Notice Issued Date-Time: 12/26/2018 18:03 Notice Type: Medicare Outpatient Observation Notice Notice Delivered To: Family Member Relationship to Patient: Sister Merchant Patroller Name: PARIS REYES Delivery Method: HAND - Hand Delivered Kristen Days: Prior Verbal Notification: Recipient Understood Notice: Yes Recipient Signature: Yes Med Rec Note Co-signed by Attending: Coverage Notice Comment: ROBERTSON FORM EXPLAINED TO THE PATIENT' SISTER. THE PATIENT IS TOO SEDATED. SIGNATURE OBTAINED. COPY TO THE PATIENT. COPY TO THE HARD COVER CHART. Last DP export: 12/27/18 1:17 p Patient Name: BRYAN MORRIS Page [id number] at 1502 All edits/amendments must be made on the electronic document DICTATION DATE: 12/27/18 1501 CERAMIC ARTIST: MICHAEL 12/27/18 1501 RPT#: [id number] DC DATE:12/27/18 STATUS: DIS IN [facility] [address] [place] [address] END OF REPORT
--- NOTE | 2018-12-28 11:06 | MORECARE ---
CASE MANAGEMENT DISCHARGE SUMMARY PATIENT: BRYAN MORRIS UNIT: [id number] ADM DATE: 12/25/18 AGE: 83 : 37 SEX: F ROOM/BED: D.2833 AUTHOR: CT,DOC PHYSICIAN: REFERRING PHYSICIAN: SAJAN MARTIN MD DATE OF SERVICE: 12/28/18 Discharge Plan Patient Name: BRYAN MORRIS Facility: [facility]:[place] : 1935 Planned Disposition: Home Anticipated Discharge Date: 12/26/18 Discharge Date: 12/27/2018 Expected LOS: 1 Initial Reviewer: [id number] Initial Review Date: 12/25/2018 Generated: 12/28/18 12:06 pm Comments DCP- Discharge Planning Updated by [id number]: Jolanta Sen on 12/27/18 2:[address] LATE ENTRY 0945 CM VISITED W/ THE PATIENT AND HER SISTER AT THE BEDSIDE. CM ADVISED SHE WOULD LIKELY BE DISCHARGED TO HOME THIS AFTERNOON. CM DISCUSSED OPTIONS FOR HOME HEALTH CARE AND SKILLED FACILITY CARE. PATIENT STATED SHE HAD HAD HOME HEALTH ONE TIME AND IT WENT VERY POORLY. SHE DID NOT HAVE A GOOD EXPERIENCE. CM PROVIDED THE HOME HEALTH PROVIDER LIST. PATIENT STATED SHE WOULD THIINK ABOUT IT. HER SISTER LIVES JUST A FEW FEET AWAY. THE SISTER HAS BEEN AT THE BEDSIDE SINCE PT'S ADMISSION. PATIENT STATES THEY HELP ONE ANOTHER. PATIENT HAS A CAT AND DOG. WHEN SHE GOES TO THE MAILBOX SHE HAS TO STOP THREE TIMES. STATES SHE TRIES TO BE CAREFUL SO THAT SHE WILL NOT FALL. DOES HAVE A FEW POTENTIAL FALL FACTORS. HAS A SHOWER CHAIR IN THE TUB FOR SAFETY. STATES SHE HAS A WALKER. SHE HAS BEEN UP TO THE BATHROOM IN HER ROOM. PHYSICAL THERAPY EVAL REQUESTED. EVAL COMPLETED. PATIENT ADVISED PHYSICAL THERAPY SHE DOES NOT WANT HOME HEALTH. 1400 CM REVISITED. PATIENT DECLINED HOME HEALTH. PATIENT CHOICE FORM REFUSAL OF SERVICE SIGNATURE OBTAINED. COPY TO THE CHART. PATIENT DOES HAVE PROVIDER LIST. CM ADVISED HOW TO OBTAIN HOME HEALTH IF SHE CHANGES HER MIND. SISTER, PARIS, PROVIDED TRANSPORTATION. DCP- Discharge Planning Updated by [id number]: Jolanta Sen on 12/26/18 5:[address] 1753 PATIENT IS SLEEPING SOUNDLY. SHE IS SCHEDULED TO GO TO SURGERY TODAY PER HER SISTER, PARIS, AT THE BEDSIDE. SHE HAS BEEN MEDICATED X 5 WITHIN LESS THAN 24 HRS W/ MSO4 4 MGM IV FOR PAIN. SHE HAD NAORCO 10 MGM PO IN THE ER. VITAL SIGNS FAIRLY STABLE. CT SCAN DONE. PATIENT HIT HER HEAD WHEN SHE FELL. CXR AND WRIST FILMS DONE. ROBERTSON EXPLAINED TO HER SISTER, PARIS, PATIENT IS TOO SEDATED. REPORTEDLY PATIENT ALSO HAS BEEN PREMEDICATED FOR SURGERY. SIGNATURE OBTAINED. COPY TO THE PATIENT. COPY TO THE CHART. DCPIA - Discharge Planning Initial Assessment Updated by [id number]: Jolanta Sen on 12/27/18 2:12 pm * Is the patient Alert and Oriented? Yes * How many steps to enter\exit or inside your home? 1 STEP W/ * PCP DR MONTEJO * Pharmacy [facility] * Preadmission Environment Home Alone * ADLs Independent * Equipment Shower Chair * Other Equipment DENIES ANY ADDITIONAL DME * List name and contact numbers for known caregivers / representatives who currently or will assist patient after discharge: PARIS REYES SISTER [phone] * Verbal permission to speak to the caregivers and representatives has been obtained from the patient. Yes * Community resources currently utilized None * Please name any agencies selected above. N/A * Additional services required to return to the preadmission environment? Yes * Can the patient safely return to the preadmission environment? Yes * Has this patient been hospitalized within the prior 30 days at any hospital? No Coverage Notice Reviewer: [id number] - Jolanta Sen Notice Issued Date-Time: 12/26/2018 18:03 Notice Type: Medicare Outpatient Observation Notice Notice Delivered To: Family Member Relationship to Patient: Sister Repair Coil Winder Name: PARIS REYES Delivery Method: HAND - Hand Delivered Kristen Days: Prior Verbal Notification: Recipient Understood Notice: Yes Recipient Signature: Yes Med Rec Note Co-signed by Attending: Coverage Notice Comment: ROBERTSON FORM EXPLAINED TO THE PATIENT' SISTER. THE PATIENT IS TOO SEDATED. SIGNATURE OBTAINED. COPY TO THE PATIENT. COPY TO THE HARD COVER CHART. Last DP export: 12/27/18 2:01 p Patient Name: BRYAN MORRIS Page [phone] at 1106 All edits/amendments must be made on the electronic document DICTATION DATE: 12/28/185 SIGN CARPENTER: MICHAEL 12/28/18 1105 RPT#: [id number] DC DATE:12/27/18 STATUS: DIS IN [facility] [address] [place] [address] END OF REPORT
== END 2018-12-27 14:30 | disposition home or self-care (01) ==
LOC: D.ER 16:18 → D.MS 19:07 → OBSVTIME 19:07 → D.MS 12-27 14:30
PROVIDERS: Family Medicine; Orthopaedic Surgery; ADMIT Internal Medicine Nephrology; ATTEND Internal Medicine Nephrology
DX: S52.612A Displaced fracture of left ulna styloid process, initial encounter for closed fracture (principal); S52.502A Unspecified fracture of the lower end of left radius, initial encounter for closed fracture; W18.2XXA Fall in (into) shower or empty bathtub, initial encounter; I25.10 Atherosclerotic heart disease of native coronary artery without angina pectoris; I11.0 Hypertensive heart disease with heart failure; I50.9 Heart failure, unspecified

== ENCOUNTER 2019-07-12 10:47 | Outpatient (CLI) | payer MEDICARE, MEDICAID ==
[~2019-07-12] VITALS: Ht 165.1 cm; Wt 81.8 kg
--- NOTE | ~2019-07-12 | HEMODYNAMI ---
PATIENT:BRYAN MORRIS MEDICAL RECORD: [id number] : 39 LOCATION:[facility] ADMISSION DATE: 07/12/19 Generatedon:07/12/201913:56 Patient name: BRYAN MORRIS Patient #: [id number] SSN: [id number] : 1935 Date of study: 07/12/2019 Page: Of Hemodynamic Procedure Report Patient Data Patient Demographics Procedure consent was obtained First Name: BRYAN Gender: Female Last Name: ALEXANDRA : 1935 Middle Initial: MEMO Age: 84 year(s) Patient #: [id number] Race: SSN: [id number] Additional ID: [id number] Contact details [address]: [address] [place] [address] State: [place] City: [place] Zip code: [address] Past Medical History Allergies Allergen Reaction Date Comments Reported Other allergy 03/09/2018 AMPICILLIN, DERMEROL Other allergy 09/10/2018 Ampicillin, meperidine, ASA Other allergy 09/24/2018 AMPICILLIN Admission Admission Data Admission Date: 07/12/2019 Admission Time: 10:47 Insurance Payor: Medicare, Medicaid Height (in.): 65 BSA: 1.9 (m2) Height (cm.): 165.1 BMI: 30.12 (kg/m2) Weight (lbs.): 181 Weight (kg.): 82.1 Lab Results Lab Result Date: 07/12/2019 Lab Result Time: 0:00 Biochemistry Name Units Result Min Max BUN mg/dl 17 --(---*)-- 7 18 Creatinine mg/dl 1 --(--*-)-- 0.6 1.3 CBC Name Units Result Min Max Hemoglobin g/dl 17.1 --(---*)-- 13.5 17.5 Procedure Procedure Types Cath Procedure Diagnostic Procedure LHC LHC w/Coronaries Sedation Charges Moderate Sedation up to 15 minutes Procedure Description Procedure Date Procedure Date: 07/12/2019 Procedure Start Time: 13:35 Procedure End Time: 13:54 Procedure Staff Name Function Armen Salvador MD Performing Physician Racquel Seals RT Monitor Shelli Knowles RN Nurse Evette Silva RT Scrub Indication Chest pain Procedure Data Cath Procedure Fluoroscopy Diagnostic fluoroscopy Total fluoroscopy Time: 3 time: 3 min min Diagnostic fluoroscopy Total fluoroscopy dose: 401 dose: 401 mGy mGy Contrast Material Contrast Material Type Amount (ml) Isovue 300 73 Entry Location Entry Primary Successful Side Size Upsize Upsize Entry Closure Succes sful Closure Location (Fr) 1 (Fr) 2 (Fr) Remarks Device Remarks Femoral Right 5 Fr Exoseal artery Estimated blood loss: 10 ml Diagnostic catheters Device Type Used For End Catheter Placement MULTIPACK JL 4.0 5Fr Procedure catheter MULTIPACK 3DRC 5Fr Procedure catheter MULTIPACK Pigtail 5 Fr Ventriculography catheter Procedure Complications No complications Procedure Medications Medication Administration Route Dosage 0.9% NaCl I.V. 100 ml/hr Oxygen etCO2 Nasal cannula 2 l/min Lidocaine 2% added to field 20 Heparin Flush Bag added to field 2 bags (1000units/500ml NS) Versed I.V. 2 mg Fentanyl I.V. 50 mcg Fentanyl I.V. 50 mcg Versed I.V. 2 mg Hemodynamics Rest BSA: 1.9 (m2) HGB: 17.1 (g/dl) O2 Consumption: Estimated: 172.55 (ml/min) O2 Con sumption indexed: Estimated:90.82 (ml/min/m) Heart Rate: 74 (bpm) Pressure Samples Time Site Value (mmHg) Purpose Heart Use Rate(bpm) 13:48 LV 151/0,12 Snapshot 74 13:49 AO 147/56(95) Pullback 80 13:49 LV 149/-3,13 Pullback 80 Gradients Valve Time Site 1 Site 2 Mean SEP/DFP Peak To Heart Use (mmHg) (sec/min) Peak Rate (mmHg) (bpm) Aortic 13:49 LV AO 8 18 2 80 149/-3,13 147/56(95) Calculations Valve P-P Mean Valve Index Valve Source Name Gradient Area Flow (cm2) Aortic 2 8 2 8 Snapshots Pre Cath Intra NCS Post Cath Vital Signs Time Heart Resp SPO2 etCO2 NIBP (mmHg) Rhythm Pain Sedation Rate (ipm) (%) (mmHg) Status Level (bpm) 13:24:50 69 12 99 30 163/73(136) NSR 0 (11) 10(A) , No pain 13:29:12 68 14 100 20 145/69(116) NSR 0 (11) 10(A) , No pain 13:33:32 68 12 99 36.3 136/71(106) NSR 0 (11) 10(A) , No pain 13:38:31 73 13 100 28.9 Measuring NSR 0 (11) 10(A) , No pain 13:38:51 67 18 100 28.2 163/66(132) NSR 0 (11) 10(A) , No pain 13:43:09 70 10 90 14.8 129/70(101) NSR 0 (11) 10(A) , No pain 13:47:25 75 17 100 1.4 145/65(109) NSR 0 (11) 10(A) , No pain 13:51:46 73 13 96 32.6 147/70(111) NSR 0 (11) 10(A) , No pain Medications Time Medication Route Dose Verified Delivered Reason Notes Eff ectiveness by by 13:23:45 0.9% NaCl I.V. 100 Armen Shelli used for ml/hr [place] Knowles conductor freight 13:23:51 Oxygen etCO2 2 Armen Shelli used for Nasal l/min [place] Knowles procedure cannula RN 13:23:55 Lidocaine 2% added 20ml Armen Armen for local to vial [place] Salvador MD anesthetic field 13:23:59 Heparin Flush added 2 Armen Armen used for Bag to bags [place] Salvador MD procedure (1000units/500ml field NS) 13:29:15 Versed I.V. 2 mg Armen Shelli for [place] Knowles sedation RN 13:29:24 Fentanyl I.V. 50 Armen Shelli for mcg [place] Knowles sedation RN 13:34:35 Fentanyl I.V. 50 Armen Shelli for mcg [place] Knowles sedation RN 13:38:32 Versed I.V. 2 mg Armen Shelli for [place] Knowles sedation registration scheduling specialist Log Time Note 12:56:17 Informed consent obtained and on chart 12:59:34 Patient Height : 65 inches 12:59:39 Patient Weight : 181 lbs 12:59:49 Insurance Payor : Medicare, Medicaid 13:05:13 Lab Result : Hemoglobin 17.1 g/dl 13:05:13 Lab Result : Creatinine 1 mg/dl 13:05:13 Lab Result : BUN 17 mg/dl 13:06:54 Indication : Chest pain 13:07:16 Procedure Status Elective Heart Cath (OP). 13:07:19 Shelli Knowles RN sent for patient. Start room use. 13:07:21 Time tracking: Regular hours (M-F 7:00 - 5:00) 13:07:26 Plan of Care:Hemodynamics will remain stable., Cardiac rhythm will remain stable., Comfort level will be maintained., Respiratory function will remain adequate., Patient/ family verbilizes understanding of procedure., Procedure tolerated without complication., Recovers from procedure without complications.. 13:07:32 Patient received from Pre/Post Procedure Room to CCL 2 Alert and oriented. Tansferred to table in Supine position. 13:07:36 Warm blankets applied, and patrice hugger turned on for patient comfort. 13:07:50 H&P Date Dictated: 07/08/2019 Within 30 days and on chart., H&P Addendum completed by physician on day of procedure. (MUST COMPLETE FOR ALL OUTPATIENTS). 13:07:51 Pre-procedure instructions explained to patient. 13:07:53 Family in waiting room. 13:07:54 Patient NPO since Midnight. 13:07:57 Is the patient allergic to Iodine/contrast media? No. 13:07:58 Was the patient premedicated? Yes 13:08:18 2) 60-89 Mildly reduced kidney function, and other findings (as for stage 1) point to kidney disease. 13:08:39 Maximum allowable contrast dose (3.7 X eGFR X 0.75)235 ml. 13:23:37 Vital chart was started 13:23:45 0.9% NaCl 100 ml/hr I.V. was administered by Shelli Knowles RN; used for procedure; Verbal order read back and verified. 13:23:51 Oxygen 2 l/min etCO2 Nasal cannula was administered by Shelli Knowles RN; used for procedure; Verbal order read back and verified. 13:23:55 Lidocaine 2% 20ml vial added to field was administered by Armen Salvador MD; for local anesthetic; Verbal order read back and verified. 13:23:59 Heparin Flush Bag (1000units/500ml NS) 2 bags added to field was administered by Armen Salvador MD; used for procedure; Verbal order read back and verified. 13:27:41 Is patient on blood thinner?No 13:27:44 Patient diabetic? No. 13:27:48 Snore? Yes 13:27:50 Sleep apnea? No 13:27:57 Dentures? Yes tight 13:28:08 IV patent on arrival in left forearm with 0.9% NaCl at [facility]. 13:28:20 Lab results completed and on chart. 13:28:26 Stress Test: no; N/A ? 13:28:34 Right groin area was prepped with chlora-prep and draped in sterile fashion 13::46 Physician arrived 13::47 --------ALL STOP TIME OUT------ 13:28:49 Final Timeout: patient, procedure, and site verified with staff and physician. All members of the team are in agreement. 13:28:50 Right groin site verified by team. 13:28:55 Fire Safety Assessment: A--An alcohol-based skin anteseptic being used preoperatively., C--Open oxygen or nitrous oxide is being used., D--An ESU, laser, or fiber-optic light is being used. 13:29:04 Physical assessment completed. ASA score P 3 - A patient with severe systemic disease as per Armen Salvador MD. 13:29:08 Sedation plan: IV Moderate Sedation Medication:Versed, Fentanyl 13:29:13 Use device set Femoral Dx 13:29:14 ACIST Syringe (57669) opened to sterile field. 13:29:15 Versed 2 mg I.V. was administered by Shelli Knowles RN; for sedation; Verbal order read back and verified. 13:29:15 Bag Decanter () opened to sterile field. 13:29:15 Medline Cath Pack ([id number]) opened to sterile field. 13:29:17 ACIST Hand Control (03347) opened to sterile field. 13:29:17 ACIST Manifold (82296) opened to sterile field. 13:29:18 DIAGNOSTIC Multipack 5Fr catheter set ([id number]) opened to sterile field. 13:29:20 Tegaderm 4 x 4 (1626W) opened to sterile field. 13:29:23 SHEATH 5FR [place] (EKA200) opened to sterile field. 13:29:24 Fentanyl 50 mcg I.V. was administered by Shelli Knowles RN; for sedation; Verbal order read back and verified. 13:29:24 EMERALD Guide Wire (494-842) opened to sterile field. 13:34:35 Fentanyl 50 mcg I.V. was administered by Shelli Knowles RN; for sedation; Verbal order read back and verified. 13:34:45 Procedure started. 13:34:46 Full Disclosure recording started 13:35:11 Local anesthetic to right femoral artery with Lidocaine 2% by Armen Salvador MD.INITIAL ACCESS ONLY 13:36:39 Zero performed for pressure channel P1 13:36:56 Zero performed for pressure channel P1 13:36:59 Zero performed for pressure channel P1 13:37:11 Zero performed for pressure channel P1 13:37:19 Zero performed for pressure channel P1 13:37:28 Zero performed for pressure channel P1 13:37:31 Zero performed for pressure channel P1 13:37:51 Zero performed for pressure channel P1 13:38:00 Zero performed for pressure channel P1 13:38:32 Versed 2 mg I.V. was administered by Shelli Knowles RN; for sedation; Verbal order read back and verified. 13:40:24 A 5 Fr sheath was inserted into the Right Femoral artery 13:40:29 J wire advanced. 13:42:35 WHOLEY 300cm 0.035 wire ([id number]) opened to sterile field. 13:43:29 A MULTIPACK JL 4.0 5Fr catheter was advanced over the wire and used for Procedure. 13:43:32 LCA angiography performed. 13:45:05 Catheter removed. 13:45:14 A MULTIPACK 3DRC 5Fr catheter was advanced over the wire and used for Procedure. 13:45:17 RCA angiography performed. 13:46:25 Catheter removed. 13:46:36 A MULTIPACK Pigtail 5 Fr catheter was advanced over the wire and used for Ventriculography. 13:46:39 EXOSEAL 5Fr (EX500) opened to sterile field. 13:46:49 LV gram done using VALDES 13:49:11 EF : 55 % 13:50:47 Catheter removed. 13:51:09 Sheath removed intact; hemostasis achieved with Exoseal to the Right Femoral artery. 13:51:12 Procedure ended.(Physican Out) 13:51:21 Fluoroscopy time 03.00 minutes. 13:51:26 Fluoroscopy dose: 401 mGy 13:51:26 Flurop Dose total: 401 13:51:30 Dose Area Product 92161 mGy/cm. 13:51:34 Contrast amount:Isovue 300 73ml. 13:52:10 Maximum allowable dose exceeded? No. 13:52:27 Sharps counted by scrub and verified by R.N. 13:52:55 Insertion/operative site no bleeding no hematoma. 13:53:01 Post-op/insertion site Right Femoral artery dressed using a 4 x 4 and Tegaderm. 13:53:02 Post Procedure Pulses reassessed and unchanged 13:53:08 Post-procedure physical assessment completed. ASA score P 2 - A patient with mild systemic disease as per Armen Salvador MD. 13:53:11 Post procedure rhythm: unchanged. 13:53:15 Estimated blood loss: 10 ml 13:53:19 Post procedure instruction explained to patient.Patient verbalizes understanding. 13:53:23 Patient needs reinforcement of post procedure teaching. 13:53:41 Procedure type changed to Cath procedure, Diagnostic procedure, LHC, C w/Coronaries, Sedation Charges, Moderate Sedation up to 15 minutes 13:53:46 Procedure and supply charges have been captured, reviewed, submitted and are correct. 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 13:54:24 See physician's report for complete and final results. 13:54:26 Report given to Pre/Post Procedure Room. 13:54:34 Patient transfered to Pre/Post Procedure Room with Stretcher. 13:54:36 Procedure ended. 13:54:36 Full Disclosure recording stopped 13:54:42 End room use (Document Last) Device Usage Item Name Manufacture Quantity Catalog Hospital Part Current Minimal L ot# / Number Charge Number Stock Stock Serial# Code ACIST Acist 1 48910 [id number] 193218 224860 20 Opax (33884) [employer] Bag Microtek 1 243911 54854 305019 5 Decanter Medical Inc. (2001S) Medline Medline 1 [id number] 822484 09159 320251 5 Cath Pack ([id number]) ACIST Hand Acist 1 32617 561525 005878 976903 5 Control Medical (67456) Systems Inc ACIST Acist 1 94896 951459 715626 710413 5 Manifold Medical (78547) Systems Inc DIAGNOSTIC Cardinal 1 HB8860 445734 30488 228960 30 Multipack Health 5Fr catheter set (HT9237) Tegaderm 4 3M 1 1626W 572340 282560 552636 5 x 4 (1626W) SHEATH 5FR Terumo 1 TRV609 356234 732996 687018 5 [place] (QZE022) EMERALD Cardinal 1 486-901 072534 648284 413640 5 Guide Wire [facility] (683-667) WHOLEY Medtronic 1 [id number] 712579 690085 302407 3 300cm 0.035 wire ([id number]) MULTIPACK Cardinal 1 513569 5 JL 4.0 5Fr Health catheter MULTIPACK Cardinal 1 763295 5 3DRC 5Fr Health catheter MULTIPACK Cardinal 1 388390 5 Pigtail 5 Health Fr catheter EXOSEAL 5Fr Cardinal 1 EX500 918660 795850 470277 10 (EX500) Health Signature Audit [place] Stage Time Signature Unsigned Intra-Procedure 07/12/2019 Racquel Seals 1:55:17 PM RT(R) Intra-Procedure 07/12/2019 Shelli Knowles 1:55:43 PM RN Intra-Procedure 07/12/2019 Armen Salvador MD 1:56:11 PM Signatures Performing Physician : Signature : Armen Salvador MD Date : Time : Monitor : Racquel Seals Signature : RT Date : Time : Nurse : Shelli Knowles RN Signature : Date : Time : [place] [address] [place] [address]
[~2019-07-12 10:47] MED LIST changes: +HYDROCODON-ACE1 EA10 PO; +MIRALAX17 GM PO
[2019-07-12] MEDS ORDERED: ALENDRONAT70 MG/75 M PO (11:38)
[2019-07-12] MEDS ORDERED: LEXAPRO10 MG PO (11:38)
[2019-07-12] MEDS ORDERED: ISOSORBIDE MONO30 M1 PO (11:41)
[2019-07-12 11:47] VITALS: BP 155/63; Ht 165.1 cm; Wt 81.8 kg
[2019-07-12 12:20] LABS: BASOPHILS 1.1 % (0-2); EOSINOPHILS 1.9 % (0-7); HEMATOCRIT 33.1 % (36.0-48.0); HEMOGLOBIN 11.3 g/dL (12-16); LYMPHOCYTES 30.1 % (15-50); MCH 30.8 pg (26.0-34.0); MCHC 34.1 g/dL (31.0-37.0); MCV 90.2 fL (80.0-100.0); MEAN PLATELET VOLUME 9.4 fL (7.4-10.4); MONOCYTES 12.2 % (2-11); NEUTROPHILS 54.7 % (40-80); PLATELET COUNT 243 10x3/uL (130-400); RBC 3.67 10x6/uL (4.00-5.40); RDW 11.9 % (11.5-14.5); WBC 3.6 10x3/uL (4.8-10.8)
[2019-07-12 12:29] LABS: ALT (SGPT) 17 U/L (10-68); CALC OSMOLALITY 264 mosm/kg (275-300); CALCIUM 8.2 mg/dL (8.5-10.1); CARBON DIOXIDE 30.9 mmol/L (21.0-32.0); CHLORIDE - SERUM 100 mmol/L (98-107); CHOL - HDL RATIO 2.6 ratio (2.3-4.1); CHOLESTEROL, TOTAL 147 mg/dL (0-200); CREATININE - SERUM 0.7 mg/dL (0.6-1.3); GLUCOSE 94 mg/dL (74-106); HDL CHOLESTEROL 56 mg/dL (32-96); LDL CHOLESTEROL 79 mg/dL (0-100); LDL-HDL RATIO 1.4 ratio (1.5-3.5); SODIUM 134 mmol/L (136-145); TRIGLYCERIDE 60 mg/dL (30-200); UREA NITROGEN 4 mg/dL (7-18); eGFR NON AFRICAN AMERICAN 85 mL/min (90-120)
--- NOTE | 2019-07-12 14:10 | NUR ---
PATIENT ARRIVED TO ROOM 4, PLACED ON CM. VSS ON 2L NC. RIGHT GROIN DRESSING IS CDI, NO S/S OF BLEEDING OR HEMATOMA.
--- NOTE | 2019-07-12 14:25 | NUR ---
PATIENT RESTING, VSS ON 2L NC. RIGHT GROIN DRESSING IS CDI, NO S/S OF BLEEDING OR HEMATOMA. NO C/O PAIN, NUMBNESS, OR TINGLING. TOLERATING PO FLUIDS, NO N/V.
--- NOTE | 2019-07-12 15:00 | NUR ---
HEAD OF BED ELEVATED TO 45 DEGREES. RIGHT GROIN DRESSING IS CDI, NO S/S OF BLEEDING OR HEMATOMA. NO C/O PAIN, NUMBNESS, OR TINGLING. VSS ON 1L NC. NO N/V.
--- NOTE | 2019-07-12 15:30 | NUR ---
PATIENT AWAKE, HEAD OF BED AT 90 DEGREES. RIGHT GROIN DRESSING IS CDI, NO S/S OF BLEEDING OR HEMATOMA. NO C/O PAIN, NUMBNESS, OR TINGLING. VSS ON ROOM AIR. PATIENT GIVEN TURKEY SANDWICH AND COLA PER REQUEST. NO N/V.
--- NOTE | 2019-07-12 16:00 | NUR ---
PATIENT AWAKE, HEAD OF BED AT 90 DEGREES. RIGHT GROIN DRESSING IS CDI, NO S/S OF BLEEDING OR HEMATOMA. NO C/O PAIN, NUMBNESS, OR TINGLING.VSS ON ROOM AIR. WRITTEN AND VERBAL DISCHARGE INSTRUCTIONS GIVEN TO PATIENT AND FAMILY, BOTH VOICE UNDERSTANDING. IV REMOVED.
--- NOTE | 2019-07-12 16:25 | NUR ---
PATIENT VOIDED WITHOUT DIFFICULTY. TRANSPORTED VIA WHEELCHAIR TO CAR WITH FAMILY DRIVING, ALL BELONGINGS WITH PATIENT.
== END 2019-07-12 16:25 ==
LOC: D.CATH 10:47
PROVIDERS: ATTEND Internal Medicine Cardiovascular Disease
DX: I25.110 Atherosclerotic heart disease of native coronary artery with unstable angina pectoris (principal); R55 Syncope and collapse

== ENCOUNTER 2020-06-01 18:37 | Observation (INO) | payer MEDICARE, MEDICAID ==
[~2020-06-01] VITALS: Ht 165.1 cm; Wt 81.8 kg
--- NOTE | ~2020-06-01 | HEMODYNAMI ---
PATIENT:BRYAN MORRIS MEDICAL RECORD: [id number] : 39 [facility]# [id number] ADMISSION DATE: 06/01/20 Generatedon:06/02/202010:26 Patient name: BRYAN MORRIS Patient #: [id number] SSN: [id number] : 1935 Date of study: 06/02/2020 Page: Of Hemodynamic Procedure Report Patient Data Patient Demographics Procedure consent was obtained First Name: BRYAN Gender: Female Last Name: ALEXANDRA : 1935 [facility] Initial: MEMO Age: 85 year(s) Patient #: [id number] Race: SSN: [id number] Additional ID: [id number] Contact details [address]: [address] [place] [address] State: [place] City: [place] Zip code: [address] Past Medical History Allergies Allergen Reaction Date Comments Reported Other allergy 03/09/2018 AMPICILLIN, DERMEROL Other allergy 09/10/2018 Ampicillin, meperidine, ASA Other allergy 09/24/2018 AMPICILLIN Admission Admission Data Admission Date: 06/01/2020 Admission Time: 20:41 Arrival Date: 06/02/2020 Arrival Time: 0:00 Admit Source: Other Insurance Payor: Medicare Room #: D.E09 [facility] #: [id number] Height (in.): 65 BSA: 1.89 (m2) Height (cm.): 165.1 BMI: 30.01 (kg/m2) Weight (lbs.): 180.36 Weight (kg.): 81.81 Lab Results Lab Result Date: 06/02/2020 Lab Result Time: 0:00 Biochemistry Name Units Result Min Max BUN mg/dl 5 -*(----)-- 7 18 CK-MB ng/ml 0.3 --(*---)-- 0 3.6 Creatinine mg/dl 0.7 --(*---)-- 0.6 1.3 eGFR ml/min 85.90449 -*(----)-- 90 120 NONAFRICAN Troponin l ng/ml 0.017 --(-*--)-- 0 0.06 CBC Name Units Result Min Max Hematocrit % 30.8 *-(----)-- 42 54 Hemoglobin g/dl 10.1 *-(----)-- 13.5 17.5 Procedure Procedure Types Cath Procedure Diagnostic Procedure LHC [facility] w/Coronaries Sedation Charges Moderate Sedation 10-24 minutes Procedure Description Procedure Date Procedure Date: 06/02/2020 Procedure Start Time: 10:14 Procedure End Time: 10:24 Procedure Staff Name Function Lennox Chaney MD Performing Physician Deepti Mina RT Scrub Evette Silva RT Monitor Baron Frankel RN Nurse Procedure Data Cath Procedure Fluoroscopy Diagnostic fluoroscopy Total fluoroscopy Time: 2 time: 2 min min Diagnostic fluoroscopy Total fluoroscopy dose: 2.4 dose: 2.4 mGy mGy Contrast Material Contrast Material Type Amount (ml) Isovue 300 46 Entry Location Entry Primary Successful Side Size Upsize Upsize Entry Closure Succes sful Closure Location (Fr) 1 (Fr) 2 (Fr) Remarks Device Remarks Femoral Right 5 Fr Exoseal artery Estimated blood loss: 5 ml Diagnostic catheters Device Type Used For End Catheter Placement MULTIPACK 3DRC 5Fr Right Coronary catheter Angiography MULTIPACK JL 4.0 5Fr Left Coronary catheter Angiography MULTIPACK Pigtail 5 Fr LV Angiography catheter Procedure Complications No complications Procedure Medications Medication Administration Route Dosage Oxygen etCO2 Nasal cannula 2 l/min Lidocaine 2% added to field 20 Heparin Flush Bag added to field 2 bags (1000units/500ml NS) 0.9% NaCl I.V. 100 ml/hr Versed I.V. 1 mg Fentanyl I.V. 50 mcg Benadryl I.V. 50 mg Versed I.V. 1 mg Fentanyl I.V. 50 mcg Versed I.V. 1 mg Hemodynamics Rest BSA: 1.89 (m2) HGB: 10.1 (g/dl) O2 Consumption: Estimated: 163.43 (ml/min) O2 Co nsumption indexed: Estimated:86.47 (ml/min/m) Heart Rate: 63 (bpm) Pressure Samples Time Site Value (mmHg) Purpose Heart Use Rate(bpm) 10:20 LV 120/22,34 Snapshot 68 Gradients Valve Time Site Site Mean SEP/DFP Peak To Heart Use 1 2 (mmHg) (sec/min) Peak Rate (mmHg) (bpm) Aortic 10:21 LV AO 74 Snapshots Pre Cath Intra NCS Post Cath Vital Signs Time Heart Resp SPO2 etCO2 NIBP (mmHg) Rhythm Pain Sedation Rate (ipm) (%) (mmHg) Status Level (bpm) 9:59:16 66 12 96 12.1 123/54(85) NSR 0 (11) 10(A) , No pain 10:03:23 62 11 96 0 105/58(85) NSR 0 (11) 10(A) , No pain 10:07:31 64 17 92 0 120/76(92) NSR 0 (11) 10(A) , No pain 10:11:47 66 14 94 12.1 121/69(117) NSR 0 (11) 10(A) , No pain 10:16:05 64 12 97 0 125/68(112) NSR 0 (11) 9(A) , No pain 10:20:21 88 13 98 43.2 119/66(86) NSR 0 (11) 9(A) , No pain 10:24:35 69 22 96 43.2 128/72(108) NSR 0 (11) 10(A) , No pain Medications Time Medication Route Dose Verified Delivered Reason Notes Eff ectiveness by by 10:03:20 Oxygen etCO2 2 Lennox Dayanaie used for Nasal l/min St Abilio Frankel RN procedure cannula 10:03:27 Lidocaine 2% added 20ml Lennox High for local to vial [facility] anesthetic field MD LAW 10:03:34 Heparin Flush added 2 Lennox Lennox used for Bag to bags [facility] procedure (1000units/500ml field MD LAW NS) 10:03:42 0.9% NaCl I.V. 100 Lennox Draper Per ml/hr St Abilio Frankel RN physician 10:05:15 Benadryl I.V. 50 mg Lennox Anneie Per St Abilio Frankel RN physician 10:08:04 Fentanyl I.V. [address] Buff[address] mcg [address] Abilio Frankel RN sedation 10:08:59 Versed I.V. 1 mg Lennox Anneie for St Abilio Frankel RN sedation 10:15:05 Versed I.V. 1 mg Lennox Kinney RN sedation 10:15:09 Fentanyl I.V. 50 Lennox Draper for [facility] St Abilio Frankel RN sedation 10:20:53 Versed I.V. 1 mg Lenn[address] for St Abilio Frankel RN sedation Procedure Log Time Note 9::29 Informed consent obtained and on chart 9:26:51 Diagnostic Cath Status : Urgent 9:: Lab Result : Creatinine 0.7 mg/dl : Lab Result : BUN 5 mg/dl : Lab Result : Hemoglobin 10.1 g/dl : Lab Result : eGFR NONAFRICAN 85.15989 ml/min : Lab Result : CK-MB 0.3 ng/ml Lab Result : Troponin l 0.017 ng/ml : Lab Result : Hematocrit 30.8 % 9:29:08 Arrival Date: 06/02/2020 12:00:00 AM 9:29:09 Admit Source: Other 9:: Patient Height : 65 inches 9:29:22 Patient Weight : 180.36 lbs 9:29:30 Insurance Payor : Medicare 9:40:13 Procedure Status Urgent Heart Cath (IP). 9:40:16 Baron Frankel RN sent for patient. Start room use. 9:40:17 Time tracking: Regular hours (M-F 7:00 - 5:00) 9:40:28 Plan of Care:Hemodynamics will remain stable., Cardiac rhythm will remain stable., Comfort level will be maintained., Respiratory function will remain adequate., Patient/ family verbilizes understanding of procedure., Procedure tolerated without complication., Recovers from procedure without complications.. 9:50:25 Patient received from ED to CCL 1 Alert and oriented. Tansferred to table in Supine position. 9:50:26 Warm blankets applied, and patrice hugger turned on for patient comfort. 9:50:26 Correct patient and procedure confirmed by team. 9:50:27 ECG and BP/O2 sat monitors applied to patient. 9:58:03 Vital chart was started 10:00:09 Baseline sample Acquired. 10:00:14 Rhythm: sinus rhythm 10:00:16 Full Disclosure recording started 10:00:21 H&P Date Dictated: 06/02/2020 Within 30 days and on chart., H&P Addendum completed by physician on day of procedure. (MUST COMPLETE FOR ALL OUTPATIENTS). 10:00:22 Pre-procedure instructions explained to patient. 10:00:24 Pre-op teaching completed and patient verbalized understanding. 10:00:27 Family unavailable. 10:00:28 Patient NPO since Midnight. 10:00:30 Is the patient allergic to Iodine/contrast media? No. 10:00:31 Was the patient premedicated? Yes 10:00:33 Is patient on blood thinner?Yes 10:00:39 ACC The patient was administered the following blood thiners within the last 24 hours: ACCPlavix, Eliquis 10:00:42 Patient diabetic? No. 10:00:48 Previous problem with sedation/anesthesia? No ? 10:00:53 Snore? No 10:00:54 Sleep apnea? No 10:00:55 Deviated septum? No 10:00:55 Opens mouth fully? Yes 10:00:57 Sticks out tongue? Yes 10:01:01 Airway obstruction? Yes asthma 10:01:07 Dentures? Yes in tight 10:01:10 Pre procedure: right dorsailis pedis pulse 2+ Normal; easily identifiable; not easily obliterated 10:01:13 Pre procedure: left dorsailis pedis pulse 2+ Normal; easily identifiable; not easily obliterated 10:01:16 Patient pain scale 0/10 ?. 10:01:21 IV patent on arrival in left forearm with 0.9% NaCl at [facility]. 10:01:23 Lab results completed and on chart. 10::28 Right groin area was prepped with chlora-prep and draped in sterile fashion 10::30 Alarms reviewed by R. N. 10:01:30 Sharps counted by scrub and verified by R.N. 10:01:32 Physician arrived 10:01:33 --------ALL STOP TIME OUT------ 10:01:34 Final Timeout: patient, procedure, and site verified with staff and physician. All members of the team are in agreement. 10:01:36 Right groin site verified by team. 10:01:40 Fire Safety Assessment: A--An alcohol-based skin anteseptic being used preoperatively., C--Open oxygen or nitrous oxide is being used., D--An ESU, laser, or fiber-optic light is being used. 10:01:44 Physical assessment completed. ASA score P 2 - A patient with mild systemic disease as per Lennox Chaney MD. 10:01:49 2) 60-89 Mildly reduced kidney function, and other findings (as for stage 1) point to kidney disease. 10:02:13 Maximum allowable contrast dose (3.7 X eGFR X 0.75)235 ml. 10:02:17 Sedation plan: IV Moderate Sedation Medication:Versed, Fentanyl 10:03:20 Oxygen 2 l/min etCO2 Nasal cannula was administered by Baron Frankel RN; used for procedure; Verbal order read back and verified. 10:03:27 Lidocaine 2% 20ml vial added to field was administered by Lennox Chaney MD; for local anesthetic; Verbal order read back and verified. 10:03:34 Heparin Flush Bag (1000units/500ml NS) 2 bags added to field was administered by Lennox Chaney MD; used for procedure; Verbal order read back and verified. 10:03:42 0.9% NaCl 100 ml/hr I.V. was administered by Baron Frankel RN; Per physician; Verbal order read back and verified. 10:05:15 Benadryl 50 mg I.V. was administered by Baron Frankel RN; Per physician; Verbal order read back and verified. 10:06:46 Use device set Femoral Dx 10:06:47 ACIST Syringe (08512) opened to sterile field. 10:06:48 Bag Decanter (2001S) opened to sterile field. 10:06:48 Medline Cath Pack ([id number]) opened to sterile field. 10:06:49 ACIST Hand Control (98807) opened to sterile field. 10:06:50 ACIST Manifold (59666) opened to sterile field. 10:06:50 DIAGNOSTIC Multipack 5Fr catheter set (UR3416) opened to sterile field. 10:06:51 Tegaderm 4 x 4 (1626W) opened to sterile field. 10:06:52 SHEATH 5FR Mantee (JOF455) opened to sterile field. 10:06:52 EMERALD Guide Wire (227-707) opened to sterile field. 10:08:04 Fentanyl 50 mcg I.V. was administered by Baron Frankel RN; for sedation; Verbal order read back and verified. 10:08:59 Versed 1 mg I.V. was administered by Baron Frankel RN; for sedation; Verbal order read back and verified. 10:10:12 Procedure started. 10:14:30 Local anesthetic to right femoral artery with Lidocaine 2% by Lennox Chaney MD.INITIAL ACCESS ONLY 10:14:38 A 5 Fr sheath was inserted into the Right Femoral artery 10:15:05 Versed 1 mg I.V. was administered by Baron Frankel RN; for sedation; Verbal order read back and verified. 10:15:09 Fentanyl 50 mcg I.V. was administered by Baron Frankel RN; for sedation; Verbal order read back and verified. 10:15:12 A MULTIPACK 3DRC 5Fr catheter was advanced over the wire and used for Right Coronary Angiography. 10:16:43 RCA angiography performed. 10:16:49 Injector settings: Ml/sec: 3, Volume: 6, 10:17:21 Catheter removed. 10:17:32 A MULTIPACK JL 4.0 5Fr catheter was advanced over the wire and used for Left Coronary Angiography. 10:18:15 LCA angiography performed. 10:18:19 Injector settings: Ml/sec: 3, Volume: 6, 10:18:49 Catheter removed. 10:18:57 A MULTIPACK Pigtail 5 Fr catheter was advanced over the wire and used for LV Angiography. 10:20:53 Versed 1 mg I.V. was administered by Baron Frankel RN; for sedation; Verbal order read back and verified. 10:21:07 LV hemodynamics recorded. 10:21:08 LV gram done using VALDES 10:21:10 Injector settings: Ml/sec: 5, Volume: 15, 10:21:17 EF : 55 % 10:21:21 Catheter removed. 10:21:23 EXOSEAL 5Fr (EX500) opened to sterile field. 10:21:40 Sheath removed intact; hemostasis achieved with Exoseal to the Right Femoral artery. 10:21:43 Procedure ended.(Physican Out) 10:21:52 Fluoroscopy time 02.00 minutes. 10::57 Fluoroscopy dose: 2.4 mGy 10::57 Flurop Dose total: 2.4 10:22:02 Dose Area Product 00911 mGy/cm. 10:22:52 Contrast amount:Isovue 300 46ml. 10:23:00 Maximum allowable dose exceeded? No. 10:23:01 Sharps counted by scrub and verified by R.N. 10:23:03 Insertion/operative site no bleeding no hematoma. 10:23:05 Post-op/insertion site Right Femoral artery dressed using a 4 x 4 and Tegaderm. 10:23:07 Post Procedure Pulses reassessed and unchanged 10:23:10 Post procedure rhythm: unchanged. 10:23:13 Estimated blood loss: 5 ml 10:23:15 Post procedure instruction explained to patient.Patient verbalizes understanding. 10:23:15 Patient needs reinforcement of post procedure teaching. 10:23:43 Procedure type changed to Cath procedure, Diagnostic procedure, LHC, [facility] w/Coronaries, Sedation Charges, Moderate Sedation 10-24 minutes 10:23:44 Procedure and supply charges have been captured, reviewed, submitted and are correct. 10:23:49 Procedure Complication : No complications 10:23:51 Vital chart was stopped 10:23:53 [facility] Findings: mild to moderate CAD (<70%) 10:23:55 Operative report dictated upon procedure completion. 10:23:55 See physician's report for complete and final results. 10:23:57 Report given to Pre/Post Procedure Room. 10:24:01 Patient transfered to Pre/Post Procedure Room with Stretcher. 10:24:03 Procedure ended. 10:24:03 Full Disclosure recording stopped 10:24:07 End room use (Document Last) 10:25:58 End room use (Document Last) 10:26:16 End room use (Document Last) Device Usage Item Name Manufacture Quantity Catalog Hospital Part Current Minimal L ot# / Number Charge Number Stock Stock Serial# Code ACIST Acist 1 11891 326198 [id number] [id number] 20 Syringe Medical (89087) Systems Inc Bag Microtek 1 238668 90045 432075 5 Decanter Medical Inc. () Medline Medline 1 [id number] 607704 91653 526698 5 Cath Pack ([id number]) ACIST Hand Acist 1 01451 591681 828142 351463 5 Control Medical (88432) Systems Inc ACIST Acist 1 58671 578989 283829 431517 5 Manifold Medical (30080) Systems Inc DIAGNOSTIC Cardinal 1 [id number] 233037 84640 131645 30 Multipack Health 5Fr catheter set (IV8905) Tegaderm 4 3M 1 1626W 219604 255031 859223 5 x 4 (1626W) SHEATH 5FR Terumo 1 WUP737 267566 394317 752077 5 Mantee (QRH419) EMERALD Cardinal 1 893-565 589348 520515 973639 5 Guide Wire [facility] (110-682) MULTIPACK Cardinal 1 037434 5 3DRC 5Fr Health catheter MULTIPACK Cardinal 1 659979 5 JL 4.0 5Fr Health catheter MULTIPACK Cardinal 1 021809 5 Pigtail 5 Health Fr catheter EXOSEAL 5Fr Cardinal 1 EX500 875848 211187 860419 10 (EX500) Health Signature Audit Thayer Stage Time Signature Unsigned Intra-Procedure 06/02/2020 Evette Silva 10:25:58 AM RT(R) Intra-Procedure 06/02/2020 Baron Frankel RN 10:26:16 AM Intra-Procedure 06/02/[address] 10:26:35 AM Abilio LAW [facility] [address] [place] [address]
[~2020-06-01 18:37] MED LIST changes: +ALENDRONAT70 MG/75 M PO; +ISOSORBIDE MONO30 M1 PO
[2020-06-01 18:57] VITALS: Ht 165.1 cm; Wt 81.8 kg
[2020-06-01] MEDS ORDERED: VENTOLIN HFA [SP8 GM INH (18:58)
[2020-06-01] MEDS ORDERED: COLACE100 MG (19:00)
[2020-06-01] MEDS ORDERED: CO Q-1030 MG (19:00)
[2020-06-01] MEDS ORDERED: ELIQUIS5 MG PO (19:01)
[2020-06-01] MEDS ORDERED: DOXYCYCLINE HY100 M2 (19:01)
[2020-06-01] MEDS ORDERED: FLUTICASONE PRO16 GM (19:02)
[2020-06-01] MEDS ORDERED: MECLIZINE HCL12.5 MG PO (19:02)
[2020-06-01] MEDS ORDERED: MUCINEX600 MG PO (19:03)
[2020-06-01] MEDS ORDERED: MELATONIN10 M1 (19:03)
[2020-06-01] MEDS ORDERED: MIRALAX17 GM (19:03)
[2020-06-01] MEDS ORDERED: MULTI-DAY VITAM1 TAB (19:04)
[2020-06-01] MEDS ORDERED: MACRODANTIN100 MG (19:05)
[2020-06-01] MEDS ORDERED: OMEGA-3100 MG (19:05)
[2020-06-01] MEDS ORDERED: TORSEMIDE20 MG (19:05)
[2020-06-01 19:29] LABS: BASOPHILS 0.7 % (0-2); EOSINOPHILS 2.2 % (0-7); HEMATOCRIT 32.6 % (36.0-48.0); IMMATURE GRANULOCYTES 0.2 % (0-5); LYMPHOCYTES 28.4 % (15-50); MCH 30.1 pg (26.0-34.0); MCHC 33.7 g/dL (31.0-37.0); MCV 89.1 fL (80.0-100.0); MEAN PLATELET VOLUME 8.6 fL (7.4-10.4); MONOCYTES 8.7 % (2-11); NEUTROPHILS 59.8 % (40-80); PLATELET COUNT 274 10x3/uL (130-400); RBC 3.66 10x6/uL (4.00-5.40); RDW 11.9 % (11.5-14.5); WBC 4.6 10x3/uL (4.8-10.8)
[2020-06-01 19:48] LABS: CALC OSMOLALITY 269 mosm/kg (275-300); CALCIUM 8.6 mg/dL (8.5-10.1); CARBON DIOXIDE 29.4 mmol/L (21.0-32.0); CHLORIDE - SERUM 100 mmol/L (98-107); CREATININE - SERUM 0.8 mg/dL (0.6-1.3); GLUCOSE 106 mg/dL (74-106); INR 1.02 (0.85-1.17); PROTIME 13.4 SECONDS (11.6-15.0); SODIUM 136 mmol/L (136-145); UREA NITROGEN 6 mg/dL (7-18); eGFR NON AFRICAN AMERICAN 72 mL/min (90-120)
[2020-06-01 20:04] LABS: ALBUMIN 3.3 g/dL (3.4-5.0); ALKALINE PHOSPHATASE 64 U/L (30-120); ALT (SGPT) 13 U/L (10-68); AMYLASE - SERUM 27 U/L (25-115); BILIRUBIN - TOTAL 0.43 mg/dL (0.2-1.3); CKMB 0.4 U/L (0.0-3.6); CREATINE KINASE 39 UL (21-215); LIPASE 67 U/L (73-393); MAGNESIUM - SERUM 2.2 mg/dL (1.8-2.4); TROPONIN-I 0.031 ng/mL (0.000-0.060)
[2020-06-01 20:06] VITALS: BP 163/74
[2020-06-01 20:40] VITALS: BP 184/85
[2020-06-01 21:05] VITALS: BP 168/81
[2020-06-01 22:38] VITALS: BP 138/64
[2020-06-01 22:41] LABS: CKMB 0.5 U/L (0.0-3.6); CREATINE KINASE 36 UL (21-215)
[2020-06-01 22:49] LABS: TROPONIN-I < 0.017 ng/mL (0.000-0.060)
--- NOTE | 2020-06-01 23:18 | NUR ---
NS INFUSING AT 50 ML/H AT SHIFTCHANGE
--- NOTE | 2020-06-01 23:18 | NUR ---
REPORT GIVEN TO YUNG [place]
--- NOTE | 2020-06-01 23:20 | NUR ---
COVID SWAB COLLECTED, WALKED TO LAB
[2020-06-01 23:45] VITALS: BP 156/63
[2020-06-02 01:00] VITALS: BP 145/67
[2020-06-02 03:00] VITALS: BP 148/65
--- NOTE | 2020-06-02 03:21 | NUR ---
REPORT RECEIVED FROM YUNG [place]. PT SUPINE POSITION. AAO WATCHING TV IN BED. PT RATES CP 03/27. PRN PAIN MEDICATION GIVEN PER EMAR. VSS. RESPIRATIONS APPEAR EVEN AND NON LABORED. LIGHTS DIMMED FOR COMFORT, CALL LIGHT WITHIN REACH. PT REMAINS ON SUPERVISOR CONTINUOUS WELD PIPE MILL, WILL CONTINUE TO MONITOR PT.
[2020-06-02 03:37] LABS: CKMB 0.2 U/L (0.0-3.6); CREATINE KINASE 28 UL (21-215); TROPONIN-I 0.018 ng/mL (0.000-0.060)
[2020-06-02 04:00] VITALS: BP 134/56
[2020-06-02 05:00] VITALS: BP 141/54
--- NOTE | 2020-06-02 05:28 | NUR ---
ASSISTED PT WITH AMBULATION TO RESTROOM, SHUFFLED GAIT WITH USE OF CANE. PT REPOSITIONED IN BED, CALL LIGHT WITHIN REACH. ICE WATER PROVIDED PER REQUEST. WILL CONTINUE TO MONITOR.
[2020-06-02 06:00] VITALS: BP 133/54
--- NOTE | 2020-06-02 06:34 | NUR ---
PT RESTING SEMI FOWLERS POSITION, EVEN RISE AND FALL OF CHEST NOTED. NO SIGNS DISTRESS. ARROUSES TO VERBAL STIMULI AND TAKES MEDS WHOLE. WILL CONTINUE TO MONITOR.
[2020-06-02 07:19] LABS: ALBUMIN 2.9 g/dL (3.4-5.0); ALKALINE PHOSPHATASE 58 U/L (30-120); ALT (SGPT) 13 U/L (10-68); BILIRUBIN - TOTAL 0.34 mg/dL (0.2-1.3); CALC OSMOLALITY 270 mosm/kg (275-300); CALCIUM 8.1 mg/dL (8.5-10.1); CARBON DIOXIDE 27.4 mmol/L (21.0-32.0); CHLORIDE - SERUM 104 mmol/L (98-107); CHOL - HDL RATIO 3.8 ratio (2.3-4.1); CHOLESTEROL, TOTAL 191 mg/dL (0-200); CKMB 0.3 U/L (0.0-3.6); CREATINE KINASE 33 UL (21-215); CREATININE - SERUM 0.7 mg/dL (0.6-1.3); GLUCOSE 96 mg/dL (74-106); HDL CHOLESTEROL 51 mg/dL (32-96); LDL CHOLESTEROL 128 mg/dL (0-100); LDL-HDL RATIO 2.5 ratio (1.5-3.5); MAGNESIUM - SERUM 2.1 mg/dL (1.8-2.4); POTASSIUM - SERUM 3.7 mmol/L (3.5-5.1); PROTEIN - SERUM 5.3 g/dL (6.4-8.2); SODIUM 137 mmol/L (136-145); THYROID STIMULATING HORMONE 1.85 uIU/mL (0.36-3.74); TRIGLYCERIDE 61 mg/dL (30-200); TROPONIN-I < 0.017 ng/mL (0.000-0.060); UREA NITROGEN 5 mg/dL (7-18); eGFR NON AFRICAN AMERICAN 85 mL/min (90-120)
[2020-06-02 07:30] LABS: EOSINOPHILS 3.4 % (0-7); HEMATOCRIT 30.8 % (36.0-48.0); HEMOGLOBIN 10.1 g/dL (12-16); LYMPHOCYTES 40.3 % (15-50); MCH 29.6 pg (26.0-34.0); MCHC 32.8 g/dL (31.0-37.0); MCV 90.3 fL (80.0-100.0); MEAN PLATELET VOLUME 8.9 fL (7.4-10.4); MONOCYTES 10.6 % (2-11); NEUTROPHILS 44.7 % (40-80); PLATELET COUNT 270 10x3/uL (130-400); RBC 3.41 10x6/uL (4.00-5.40); RDW 12.1 % (11.5-14.5); WBC 4.1 10x3/uL (4.8-10.8)
--- NOTE | 2020-06-02 09:52 | NUR ---
NS INFUSION STOPPED IN ER AT 0945. PT. TRANSFERRED TO FISH ROE PROCESSOR WITH NS INFUSING.
--- NOTE | 2020-06-02 10:39 | NUR ---
PT ARRIVED BY STRETCHER. PLACED ON MONITORS. ASSESSMENT COMPLETED. VSS AT THIS TIME. CALL LIGHT WITHIN REACH.
--- NOTE | 2020-06-02 10:55 | NUR ---
RIGHT GROIN DRESSING C/D/I. NO S/S OF HEMATOMA NOTED. CALL LIGHT WITHIN REACH. VSS AT THIS TIME. PT RESTING COMFORTABLY.
--- NOTE | 2020-06-02 11:30 | NUR ---
RIGHT GROIN DRESSING C/D/I. NO S/S OF HEMATOMA NOTED. VSS. HEAD OF BED INC TO 30 DEGREES. TOLERATED WELL. WILL CONTINUE TO MONITOR.
--- NOTE | 2020-06-02 12:00 | NUR ---
RIGHT GROIN DRESSING C/D/I. NO S/S OF HEMATOMA NOTED. CALL LIGHT WITHIN REACH. VSS. NO NEEDS AT THIS TIME.
--- NOTE | 2020-06-02 12:20 | NUR ---
ADELIA SANABRIA AT BEDSIDE AND SPEAKING WITH PT. RIGHT GROIN DRESSING C/D/I. NO S/S OF HEMATOMA NOTED. WILL INC PT'S DIET TO FULL LIQUID PER MANAGER LEADERSHIP DEVELOPMENT. PT TOLERATING SIPS OF WATER. DENIES NAUSEA.
[2020-06-02] MEDS ORDERED: CATAPRES0.1 MG PO (12:41)
--- NOTE | 2020-06-02 13:00 | NUR ---
PT SITTING UP IN BED. CALL LIGHT WITHIN REACH VSS. RIGHT GROIN DRESSING C/D/I. NO S/S OF HEMATOMA NOTED. TOLERATING ICE CREAM AT THIS TIME. MAY DISCHARGE HOME, BUT TRYING TO FIND A WAY FOR PT TO GET HOME. SPOKE WITH PIEDAD IN CASE MANAGMENT REGARDING GETTING HOME.
--- NOTE | 2020-06-02 14:00 | NUR ---
RIGHT GROIN DRESSING C/D/I. NO S/S OF HEMATOMA NOTED. CALL LIGHT WITHIN REACH. CASE MGMT APPROVED FOR TAXI RIDE HOME.
--- NOTE | 2020-06-02 14:30 | NUR ---
PT'S SISTER ARRIVED AND WILL DRIVE HER HOME. TAXI CANCELLED. PIV D/C'D WITH CATH TIP INTACT. TOLERATED WELL. RIGHT GROIN DRESSING C/D/I. NO S/S OF HEMATOMA NOTED. PT INSTRUCTED TO GET UP AND DRESSED AT THIS TIME. SISTER AT BEDSIDE TO ASSIST. CALL LIGHT WITHIN REACH.
--- NOTE | 2020-06-02 14:45 | NUR ---
PT AMBULATED TO RESTROOM WITH CANE. STEADY GAIT NOTED. VOIDED WITHOUT DIFFICULTY. WAITING ON [facility]S OFFICE TO CALL BACK WITH FOLLOW UP.
[2020-06-02] MEDS ORDERED: PROTONIX40 MG PO (15:10)
--- NOTE | 2020-06-02 15:10 | NUR ---
ADELIA SANABRIA CAME BY AND SPOKE WITH PT AND PT'S SISTER. WILL SEND IN RX FOR Positronics.
--- NOTE | 2020-06-02 15:20 | NUR ---
RIGHT GROIN DRESSING C/D/I. NO S/S OF HEMATOMA NOTED. DISCUSSED DISCHARGE INSTRUCTIONS WITH PT AND PT'S FAMILY. THEY VOICED UNDERSTANDING. PT TAKEN OUT TO VEHICLE BY WHEELCHAIR. NO S/S OF DISTRESS NOTED. ALL BELONGINGS AND PAPERWORK IN HAND.
--- NOTE | 2020-06-05 09:31 | OP ---
PATIENT NAME: BRYAN MORRIS MEDICAL RECORD: [id number] :37 LOCATION:[facility] ADMISSION DATE:06/01/20 SURGEON: ALY GARCIA MD DATE OF OPERATION: 06/02/2020 PROCEDURE: Left heart catheterization, selective coronary angiography, a right femoral artery approach. CATHETERS: A 5-Kyrgyz sheath, 5/4 left and right Ganesh, 5/4 pig. The procedure was well tolerated. The patient returned to the sue. Sheath removed. ExoSeal device placed. FINDINGS: Left ventriculography in 30-degree VALDES view: Normal wall motion and normal systolic function. CORONARY ANATOMY: LEFT MAIN: Left main is free of disease. LAD: Free in diagonal system. CIRCUMFLEX: Area of previous stenting is widely patent without evidence of post-anastomotic stenosis. No evidence of restenosis. No progression of kotlik disease. RIGHT CORONARY: Dominant system. Right coronary artery previously stenting is widely patent without evidence of restenosis. No progression of kotlik disease. IMPRESSION: Widely patent stent, no progression of disease. LV function remains normal. TRANSINT:[id number] Voice Confirmation ID: [id number] DOCUMENT ID: [id number] ALY GARCIA MD at 0931 CC: [id number] DICTATION DATE: 06/02/20 113 HOME INSPECTOR: 06/02/202050 DIS IN 06/02/20 [facility] [address] [place] [address]
--- NOTE | 2020-06-05 09:31 | CN ---
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 We are asked to see her concerning cardiovascular status. PAST MEDICAL HISTORY: Includes; 1. History of hypertension. 2. Hyperlipidemia. 3. Coronary artery disease as described above. ALLERGIES: INCLUDE ASPIRIN, AMPICILLIN AND DEMEROL. MEDICATIONS: Include torsemide 20 mg p.o. every day, potassium 10 mEq p.o. every day, [place] 10/325 every 6 hours p.r.n., Celexa 10 every day, Wellbutrin 150 b.i.d., Imdur 30 every day, atorvastatin 10 every day, carvedilol 3.125 b.i.d., losartan 50 every day, Plavix 75 every day. SOCIAL HISTORY: Lives with her sister, nonsmoker, nondrinker. Is able to take care of most of her ADLs. No set exercise program. REVIEW OF SYSTEMS: The patient reports easy bruising but reports no swollen glands. The patient reports no fever, no night sweats, no significant weight gain, no significant weight loss. No significant exercise tolerance. The patient reports no dry eyes, no irritation, no vision change. Patient reports no difficulty hearing and no ear pain. Patient reports no frequent nose bleeds or nose and sinus problems. Patient reports on arm pain on exertion. No shortness of breath while lying down. No history of heart murmur. Patient reports no cough, no wheezing or coughing up blood. Patient reports no abdominal pain, no vomiting. Normal appetite. No diarrhea and not vomiting blood. No nausea and no constipation. Patient reports no incontinence. No difficulty urinating. No hematuria. No increased frequency. Patient reports no muscle aches. No weakness, no arthralgias, no back pain. No swelling of the extremities. Patient reports no abnormal mole, no jaundice, no rashes. Reports no loss of consciousness. No weakness and no numbness. No seizures, dizziness, or headaches. The patient reports no depression, no sleep disturbance, feeling safe in a relationship and no alcohol abuse. Patient reports on fatigue. Reports no runny nose or sinus pressure. No itching, no hives, and no frequent sneezing. PHYSICAL EXAMINATION: GENERAL: Elderly female in no acute distress, appears stated age. VITAL SIGNS: Blood pressure 133/54, pulse 64 and regular. HEENT: Normocephalic, atraumatic. NECK: No JVD or bruit. HEART: Regular, II/ systolic ejection murmur. LUNGS: Good air excursion. CONSULT REPORT [id number] BRYAN MORRIS ABDOMEN: Soft, nontender. EXTREMITIES: Pulses 2+. No edema. DIAGNOSTIC DATA: EKG shows nonspecific ST-T changes anteriorly. IMPRESSION: Acute coronary syndrome, multiple risk factors. PLAN: For angiography, intervention based on the above. TRANSINT:[id number] Voice Confirmation ID: [id number] DOCUMENT ID: [id number] ALY GARCIA MD at 0931 CC: [id number] DICTATION DATE: 06/02/20955 GROUND CREWMAN: 06/02/20 1631 DIS IN 06/02/20 [facility] [address] [place] [address]
== END 2020-06-02 15:20 | disposition home or self-care (01) ==
LOC: D.ER 18:37 → D.EDHOLD 20:41 → OBSVTIME 20:41 → D.CLR 20:41 → D.EDHOLD 20:41 → D.CLR 06-02 10:33
PROVIDERS: Family Medicine; ADMIT Family Medicine; ATTEND Family Medicine
DX: K21.9 Gastro-esophageal reflux disease without esophagitis (principal); I25.10 Atherosclerotic heart disease of native coronary artery without angina pectoris; I10 Essential (primary) hypertension; E78.5 Hyperlipidemia, unspecified; D64.9 Anemia, unspecified; E03.9 Hypothyroidism, unspecified; F41.8 Other specified anxiety disorders; M19.90 Unspecified osteoarthritis, unspecified site